=== PATIENT | male | born 1960 | race Caucasian/White ===

== ENCOUNTER 2018-03-20 11:54 | Inpatient (IN) | payer BC ==
[~2018-03-20] VITALS: Ht 182.9 cm; Wt 75.5 kg
[~2018-03-20 11:54] MED LIST: Amlodipine Besy10 MG PO; Atenolol100 MG PO; EZET10 PO; VARE1 PO; ZESTRIL40 MG PO
[2018-03-20 12:23] LABS: BASOPHILS ABSOLUTE AUTO 0.04 K/mm3 (0.00-0.23); BASOPHILS PERCENT AUTO 0 % (0-2); EOSINOPHILS ABSOLUTE AUTO 0.08 K/mm3 (0.00-0.68); EOSINOPHILS PERCENT AUTO 1 % (0-6); Hematocrit 34.5 % (37.0-53.0); Hemoglobin 11.8 g/dL (13.5-17.5); IMMATURE GRAN ABSOLUTE AUTO 0.05 K/mm3 (0.00-0.10); IMMATURE GRAN PERCENT AUTO 0 % (0-1); LYMPHOCYTES ABSOLUTE AUTO 3.38 K/mm3 (0.84-5.20); LYMPHOCYTES PERCENT AUTO 27 % (21-46); MONOCYTES ABSOLUTE AUTO 0.87 K/mm3 (0.16-1.47); MONOCYTES PERCENT AUTO 7 % (4-13); Mean Corpuscular HGB 35.9 pg (26.0-34.0); Mean Corpuscular HGB Conc 34.2 g/dL (31.5-36.5); Mean Corpuscular Volume 105 fL (80-100); Mean Platelet Volume 9.5 fL (9.1-12.4); NEUTROPHILS ABSOLUTE AUTO 8.28 K/mm3 (1.96-9.15); NEUTROPHILS PERCENT AUTO 65 % (41-73); Platelet Count 202 K/mm3 (150-400); RDW Coefficient Variation 12.7 % (11.7-14.2); Red Blood Cell Count 3.29 M/mm3 (4.30-5.90)
[2018-03-20 12:35] LABS: Alanine Aminotransfer (ALT/SGP 24 U/L (12-78); Albumin/Globulin Ratio 1.2 (0.8-1.8); Alk Phos 55 U/L (50-136); Anion Gap 8 mmol/L (6-16); Aspartate Aminotrans (AST/SGOT 21 U/L (12-37); Bilirubin, Total 0.8 mg/dL (0.1-1.0); Blood Urea Nitrogen 46 mg/dL (8-24); Bun/Creatinine Ratio 50.4 (12.0-20.0); CO2, Blood 26 mmol/L (21-32); Calcium, Blood 9.1 mg/dL (8.5-10.1); Chloride, Blood 104 mmol/L (98-108); Creatinine, Blood 0.91 mg/dL (0.60-1.20); Globulin, Blood 3.2 g/dL (2.2-4.0); Glomerular Filtration Rate >60 (60-); Glucose, Blood 127 mg/dL (70-99); International Normalized Ratio 0.96; Potassium, Blood 4.5 mmol/L (3.5-5.5); Sodium, Blood 138 mmol/L (136-145); Total Protein, Blood 7.2 g/dL (6.4-8.2)
[2018-03-20] MEDS ORDERED: AMLO10 PO (15:23)
[2018-03-20] MEDS ORDERED: ATEN100 PO (15:24)
[2018-03-20] MEDS ORDERED: LISI20 PO (15:24)
[2018-03-21 04:14] LABS: Hemoglobin 10.2 g/dL (13.5-17.5); Mean Corpuscular Volume 106 fL (80-100); Mean Platelet Volume 9.7 fL (9.1-12.4); Platelet Count 162 K/mm3 (150-400); RDW Coefficient Variation 12.7 % (11.7-14.2); RDW Standard Deviation 49.1 fL (35.1-46.3); Red Blood Cell Count 2.83 M/mm3 (4.30-5.90)
[2018-03-22] MEDS ORDERED: OMEPRAZOLE MAGN20 MG PO (07:19)
== END 2018-03-22 08:08 | disposition home or self-care (01) | DRG 379 ==
LOC: ER 11:54 → MEDS 11:55 → PCU 11:55
PROVIDERS: Emergency Medicine; Family Medicine; Internal Medicine Gastroenterology
PROC: 0DB68ZX Excision of Stomach, Via Natural or Artificial Opening Endoscopic, Diagnostic (ICD-10-PCS; 2018-03-21)
PROC: 0DB98ZX Excision of Duodenum, Via Natural or Artificial Opening Endoscopic, Diagnostic (ICD-10-PCS; principal; 2018-03-21 14:45)
DX: K25.4 Chronic or unspecified gastric ulcer with hemorrhage (principal); K26.9 Duodenal ulcer, unspecified as acute or chronic, without hemorrhage or perforation; F17.210 Nicotine dependence, cigarettes, uncomplicated; K92.0 Hematemesis; T39.315A Adverse effect of propionic acid derivatives, initial encounter; I10 Essential (primary) hypertension; G89.29 Other chronic pain; F10.20 Alcohol dependence, uncomplicated; K92.1 Melena
CPT/HCPCS: 36415; 80053; 83690; 85025; 85027; 85610; 85730; 86850; 86900; 86901; 88305; 88342; 93005; 93010; 96365; 96366; 99285; C9113; J2250; J7030; J7120

== ENCOUNTER 2020-09-19 09:08 | Day surgery (SDC) | payer BC ==
[~2020-09-19] VITALS: Ht 182.9 cm; Wt 79.0 kg
[~2020-09-19 09:08] MED LIST changes: +ALBU8HFA2 INH; +AMLO10 PO; +ATEN100 PO; +INCRUSE ELLIPTA INH; +LISI20 PO; +LISINOPRIL-HCT1 EAC1 PO; +OMEPRAZOLE MAGN20 MG PO; +Pravachol40 MG PO
== END 2020-09-19 09:15 | disposition home or self-care (01) ==
LOC: ORSCSDS 09:08
PROVIDERS: Surgery
PROC: 0DBN8ZX Excision of Sigmoid Colon, Via Natural or Artificial Opening Endoscopic, Diagnostic (ICD-10-PCS; principal; 2020-09-19 08:30)
PROC: 0DBK8ZX Excision of Ascending Colon, Via Natural or Artificial Opening Endoscopic, Diagnostic (ICD-10-PCS; principal; 2020-09-19 08:30)
DX: Z12.11 Encounter for screening for malignant neoplasm of colon (principal); Z86.010 Personal history of colon polyps; D12.2 Benign neoplasm of ascending colon; D12.5 Benign neoplasm of sigmoid colon; K57.30 Diverticulosis of large intestine without perforation or abscess without bleeding; L91.8 Other hypertrophic disorders of the skin; I10 Essential (primary) hypertension; E78.5 Hyperlipidemia, unspecified; J44.9 Chronic obstructive pulmonary disease, unspecified; G47.30 Sleep apnea, unspecified; F17.210 Nicotine dependence, cigarettes, uncomplicated; Z79.899 Other long term (current) drug therapy
CPT/HCPCS: 88305; J0330; J0461; J2405; J2704; J7120

== ENCOUNTER 2022-07-20 11:53 | Day surgery (SDC) | payer BC ==
[~2022-07-20] VITALS: Ht 180.3 cm; Wt 76.3 kg
--- NOTE | 2022-07-20 13:44 | NUR ---
07/20/22 1344 Patricio Posadas N 1340 2 MG IV VERSED, 50 MCG FENTANYL IV ADMINISTERED BY RN PER DR GOODE. VSS.
== END 2022-07-20 14:22 | disposition home or self-care (01) ==
LOC: ORSCSDS 11:53
PROVIDERS: Anesthesiology
PROC: 3E0R33Z Introduction of Anti-inflammatory into Spinal Canal, Percutaneous Approach (ICD-10-PCS; principal; 2022-07-20 13:45)
DX: M54.12 Radiculopathy, cervical region (principal); E78.00 Pure hypercholesterolemia, unspecified; I10 Essential (primary) hypertension; F17.210 Nicotine dependence, cigarettes, uncomplicated
CPT/HCPCS: J1040; J2250; J3010; J3301; J7040

== ENCOUNTER 2022-09-10 12:43 | Day surgery (SDC) | payer BC ==
[~2022-09-10] VITALS: Ht 182.9 cm; Wt 76.6 kg
== END 2022-09-10 14:46 | disposition home or self-care (01) ==
LOC: ORSCSDS 12:43
PROVIDERS: Anesthesiology
PROC: 3E0R33Z Introduction of Anti-inflammatory into Spinal Canal, Percutaneous Approach (ICD-10-PCS; principal; 2022-09-10 14:30)
DX: M54.12 Radiculopathy, cervical region (principal); M96.1 Postlaminectomy syndrome, not elsewhere classified; I10 Essential (primary) hypertension; J45.909 Unspecified asthma, uncomplicated; E78.00 Pure hypercholesterolemia, unspecified; K21.9 Gastro-esophageal reflux disease without esophagitis; F17.210 Nicotine dependence, cigarettes, uncomplicated; Z79.899 Other long term (current) drug therapy
CPT/HCPCS: J1040; J2250; J3010

== ENCOUNTER 2023-01-13 20:25 | Inpatient (IN) | payer BC ==
[~2023-01-13] VITALS: Ht 182.9 cm; Wt 73.2 kg
[~2023-01-13 20:25] MED LIST changes: +ALBU2.5V5 NEB; -ALBU8HFA2 INH; +ALBU90OI INH; -AMLO10 PO; +AMLO5 PO; +AZIT250 PO; +DIFLUCAN100 MG PO; +FLUTICASONE-SA1 EAC9 INH; +MAGNESIUM OXID500 MG PO; +OMEP20ER PO; -OMEPRAZOLE MAGN20 MG PO; +POTCHL20ER PO; +Pravastatin Sod80 MG PO; +VISBIOME 112.51 EACH PO
[2023-01-13 20:50] LABS: Calcium, Ionized (POC) 1.05 mmol/L (1.10-1.46); Chloride (POC) 111 mmol/L (98-108); Creatinine (POC) 0.8 mg/dL (0.8-1.3); Glucose (ISTAT POC) 114 mg/dL (70-99); Hemoglobin (POC) 9.2 g/dL (13.5-17.5); Potassium (POC) 5.9 mmol/L (3.5-5.5); Sodium (POC) 133 mmol/L (135-148); Total CO2 (POC) 14 mmol/L (21-32)
[2023-01-13 21:24] LABS: BASOPHILS ABSOLUTE AUTO 0.04 K/mm3 (0.00-0.23); BASOPHILS PERCENT AUTO 0 % (0-2); EOSINOPHILS ABSOLUTE AUTO 0.03 K/mm3 (0.00-0.68); EOSINOPHILS PERCENT AUTO 0 % (0-6); Hematocrit 29.7 % (37.0-53.0); Hemoglobin 9.4 g/dL (13.5-17.5); IMMATURE GRAN ABSOLUTE AUTO 0.32 K/mm3 (0.00-0.10); IMMATURE GRAN PERCENT AUTO 3 % (0-1); LYMPHOCYTES ABSOLUTE AUTO 6.66 K/mm3 (0.84-5.20); LYMPHOCYTES PERCENT AUTO 59 % (21-46); MONOCYTES ABSOLUTE AUTO 0.72 K/mm3 (0.16-1.47); MONOCYTES PERCENT AUTO 6 % (4-13); Mean Corpuscular HGB 34.8 pg (26.0-34.0); Mean Corpuscular HGB Conc 31.6 g/dL (31.5-36.5); Mean Platelet Volume 12.2 fL (9.1-12.4); NEUTROPHILS ABSOLUTE AUTO 3.61 K/mm3 (1.96-9.15); NEUTROPHILS PERCENT AUTO 32 % (41-73); NRBC ABSOLUTE 0.05 K/mm3 (0.00-0.02); NRBC Auto 0.4 /100 WBC (0.0-0.2); Platelet Count 190 K/mm3 (150-400); RDW Coefficient Variation 15.4 % (11.7-14.2); RDW Standard Deviation 62.2 fL (35.1-46.3); White Blood Cell Count 11.38 K/mm3 (4.00-11.30)
[2023-01-13 21:38] LABS: Ethanol (Alcohol), Blood, Med <3 mg/dL; Magnesium, Blood 1.6 mg/dL (1.6-2.4)
[2023-01-13 21:39] LABS: Alanine Aminotransfer (ALT/SGP 100 U/L (12-78); Albumin, Blood 2.1 g/dL (3.4-5.0); Albumin/Globulin Ratio 0.6 (0.8-1.8); Alk Phos 440 U/L (50-136); Anion Gap 9 mmol/L (6-16); Aspartate Aminotrans (AST/SGOT 174 U/L (12-37); Bilirubin, Total 0.9 mg/dL (0.1-1.0); Blood Urea Nitrogen 22 mg/dL (8-24); Bun/Creatinine Ratio 24.4 (12.0-20.0); CO2, Blood 16 mmol/L (21-32); Calcium, Blood 8.2 mg/dL (8.5-10.1); Chloride, Blood 112 mmol/L (98-108); Globulin, Blood 3.7 g/dL (2.2-4.0); Glomerular Filtration Rate 97 (60-); Glucose, Blood 130 mg/dL (70-99); Potassium, Blood 5.7 mmol/L (3.5-5.5); Sodium, Blood 137 mmol/L (136-145); Total Protein, Blood 5.8 g/dL (6.4-8.2)
[2023-01-13 21:44] LABS: Mean Corpuscular Volume 110 fL (80-100)
[2023-01-13 21:46] LABS: PCO2 Arterial 34.3 mmHg (35-45); PO2 Arterial 291 mmHg (80-100); pH Blood Arterial 7.21 (7.35-7.45)
[2023-01-14 02:15] LABS: Source, Urine Foley catheter
[2023-01-14 02:32] LABS: Bilirubin, Urine Neg (Neg); Blood, Urine 4+ (Neg); Glucose Qualitative, Urine 2+ (Neg); Ketones, Urine Neg (Neg); Leukocyte Esterase, Urine Neg (Neg); Nitrite, Urine Neg (Neg); Protein, Urine 4+ (Neg); Urobilinogen, Urine 1+ (Normal)
[2023-01-14 02:37] LABS: Appearance, Urine Hazy (Clear); Color, Urine Yellow (P-Yellow)
[2023-01-14 02:39] LABS: Bacteria Few /hpf; Squamous Epithelial Cells Few /hpf (Few); White Blood Cells, Urine 0-2 /hpf (0-5)
[2023-01-14 02:40] LABS: Hyaline Casts 0-2 /lpf (0-2)
[2023-01-14 02:45] LABS: U Cannabinoids Screen DETECTED
[2023-01-14 02:46] LABS: U Amphetamine Screen Not Detected; U Barbituate Screen Not Detected; U Benzodiazapine Screen Not Detected; U Buprenorphine Screen Not Detected; U Cocaine Screen Not Detected; U Methadone Screen Not Detected; U Methamphetamine Screen DETECTED; U Opiates Screen Not Detected; U Oxycodone Screen Not Detected; U Phencyclidine Screen Not Detected; U Propoxyphene Screen Not Detected
[2023-01-14 03:11] LABS: Creatine Kinase MB 28.7 ng/mL (0.0-3.6); Creatine Kinase MB Index 3.9 (0.0-4.0)
[2023-01-14 05:07] LABS: BASOPHILS ABSOLUTE AUTO 0.02 K/mm3 (0.00-0.23); BASOPHILS PERCENT AUTO 0 % (0-2); EOSINOPHILS PERCENT AUTO 0 % (0-6); Hematocrit 26.4 % (37.0-53.0); Hemoglobin 8.8 g/dL (13.5-17.5); IMMATURE GRAN ABSOLUTE AUTO 0.09 K/mm3 (0.00-0.10); IMMATURE GRAN PERCENT AUTO 1 % (0-1); LYMPHOCYTES ABSOLUTE AUTO 1.35 K/mm3 (0.84-5.20); LYMPHOCYTES PERCENT AUTO 16 % (21-46); MONOCYTES ABSOLUTE AUTO 0.58 K/mm3 (0.16-1.47); MONOCYTES PERCENT AUTO 7 % (4-13); Mean Corpuscular HGB 34.1 pg (26.0-34.0); Mean Corpuscular HGB Conc 33.3 g/dL (31.5-36.5); Mean Platelet Volume 11.5 fL (9.1-12.4); NEUTROPHILS ABSOLUTE AUTO 6.23 K/mm3 (1.96-9.15); NEUTROPHILS PERCENT AUTO 75 % (41-73); Platelet Count 202 K/mm3 (150-400); RDW Coefficient Variation 15.2 % (11.7-14.2); RDW Standard Deviation 56.3 fL (35.1-46.3); Red Blood Cell Count 2.58 M/mm3 (4.30-5.90); White Blood Cell Count 8.27 K/mm3 (4.00-11.30)
[2023-01-14 05:07] LABS: PCO2 Arterial 32.2 mmHg (35-45); pH Blood Arterial 7.43 (7.35-7.45)
[2023-01-14 05:47] LABS: Albumin/Globulin Ratio 0.6 (0.8-1.8); Bilirubin, Total 1.6 mg/dL (0.1-1.0); Bun/Creatinine Ratio 24.8 (12.0-20.0); Calcium, Blood 7.8 mg/dL (8.5-10.1); Creatinine, Blood 0.85 mg/dL (0.60-1.20); Globulin, Blood 3.3 g/dL (2.2-4.0); Potassium, Blood 4.4 mmol/L (3.5-5.5); Total Protein, Blood 5.3 g/dL (6.4-8.2)
[2023-01-14 06:33] LABS: Mean Corpuscular Volume 102 fL (80-100)
[2023-01-14 09:13] LABS: Source, Urine Foley catheter
[2023-01-14 09:17] LABS: Appearance, Urine Clear (Clear); Bilirubin, Urine Neg (Neg); Blood, Urine 5+ (Neg); Color, Urine Yellow (P-Yellow); Glucose Qualitative, Urine 3+ (Neg); Ketones, Urine Neg (Neg); Leukocyte Esterase, Urine 2+ (Neg); Nitrite, Urine Neg (Neg); Protein, Urine 2+ (Neg); Specific Gravity, Urine 1.015 (1.003-1.022); Urobilinogen, Urine 1+ (Normal)
[2023-01-14 09:44] LABS: U Amphetamine Screen Not Detected; U Barbituate Screen Not Detected; U Benzodiazapine Screen Not Detected; U Cannabinoids Screen DETECTED; U Cocaine Screen Not Detected; U Methadone Screen Not Detected; U Methamphetamine Screen Not Detected; U Opiates Screen Not Detected; U Phencyclidine Screen Not Detected
[2023-01-14 09:45] LABS: U Buprenorphine Screen Not Detected; U Oxycodone Screen Not Detected; U Propoxyphene Screen Not Detected
[2023-01-14 09:49] LABS: White Blood Cells, Urine 0-2 /hpf (0-5)
[2023-01-14 09:50] LABS: Bacteria Few /hpf; Hyaline Casts 0-2 /lpf (0-2); Squamous Epithelial Cells Few /hpf (Few)
[2023-01-14 12:01] LABS: Creatine Kinase MB 23.2 ng/mL (0.0-3.6); Creatine Kinase MB Index 3.5 (0.0-4.0)
--- NOTE | 2023-01-14 18:22 | NUR ---
END OF SHIFT SUMMARY: NEURO: SEDATED WITH PROPOFOL, TITRATED FOR EFFECT. C/O PAIN, FENTANYL GIVEN WITH GOOD RELIEF. EEG CANCELLED DUE TO PT FOLLOWING ALL COMMANDS. MOVES ALL EXTREMETIES. CARDIAC: SR TO SB, RATE LOW 45. BP MAINTAINED WITH LEVO, ABLE TO TITRATE DOWN THROUGHOUT THE DAY. OK FOR SBP <90 IF MAP >[address] DUNHAM. ECHO COMPLETED. AMIO INFUSION D/C'D DUE TO BRADYCARDIA. RESP: INTUBATED WITH 8.0 ETT/26@TEETH. VENT SETTINGS 16/500/8/45% TO MAINTAIN SPO2 > 92%. PLAN FOR SBT IN AM PER DR. DUNHAM. LUNGS CTA, DIMISHED BASES. PAIN IN RIBS/STERNUM LIKELY RELATED TO CPR, FX RIBS. GI: OGT TO LIS. BS HYPOACTIVE : NATHAN TO GRAVITY, 700ML CLEAR YELLOW URINE OUT. SKIN: SCATTERED ABRASIONS AND BRUISES. RIGHT SHOULDER AND LEFT TIBIAL I/O SITES WITH NO DRAINAIGE OR BLEEDING. IV: QUAD LUMEN CATH TO RIGHT IJ, ALL PORTS INFUSING. PIV TO LEFT SHOULDER, FLUSHES WELL, SL. HCO3 DRIP AT 100ML/HR 2ND OF 2 LITERS HANGING. , BROTHER, SISTER IN LAW AND NIECE ALL TO BEDISIDE TODAY. UPDATED ON POC, ALL QUESTIONS ANSWERED.
--- NOTE | 2023-01-14 19:00 | NUR ---
ASSUMED CARE ASSUMED CARE OF PATIENT. REMAINS INTUBATED- AC/VC 16, TV 500, PEEP 8, FIO2 45%. SEDATED WITH PROPOFOL AT 35MCG/KG/MIN. OPENS EYES TO VERBAL STIMULI. FOLLOWS SIMPLE COMMANDS. NODS HEAD YES/NO APPROPRIATELY. MOVES ALL EXTREMITIES WEAKLY. MONITOR SHOWS SB-SR, RATE 40s-60s. LEVOPHED AT 4MCG/MIN TO MAINTAIN MAP >65. OG TO LIS WITH SMALL AMOUNT GREEN DRAINAGE. NATHAN PATENT AND DRAINING TO GRAVITY. BICARB GTT INFUSING PER ORDER. RIJ CENTRAL LINE NOTED. SEE SHIFT ASSESSMENT FOR FULL ASSESSMENT.
[2023-01-15 04:18] LABS: BASOPHILS ABSOLUTE AUTO 0.01 K/mm3 (0.00-0.23); BASOPHILS PERCENT AUTO 0 % (0-2); EOSINOPHILS ABSOLUTE AUTO 0.03 K/mm3 (0.00-0.68); EOSINOPHILS PERCENT AUTO 1 % (0-6); Hematocrit 21.2 % (37.0-53.0); Hemoglobin 7.4 g/dL (13.5-17.5); IMMATURE GRAN ABSOLUTE AUTO 0.07 K/mm3 (0.00-0.10); IMMATURE GRAN PERCENT AUTO 2 % (0-1); LYMPHOCYTES ABSOLUTE AUTO 1.46 K/mm3 (0.84-5.20); LYMPHOCYTES PERCENT AUTO 32 % (21-46); MONOCYTES ABSOLUTE AUTO 0.22 K/mm3 (0.16-1.47); MONOCYTES PERCENT AUTO 5 % (4-13); Mean Corpuscular HGB 34.9 pg (26.0-34.0); Mean Corpuscular HGB Conc 34.9 g/dL (31.5-36.5); Mean Corpuscular Volume 100 fL (80-100); Mean Platelet Volume 11.4 fL (9.1-12.4); NEUTROPHILS ABSOLUTE AUTO 2.76 K/mm3 (1.96-9.15); NEUTROPHILS PERCENT AUTO 61 % (41-73); Platelet Count 123 K/mm3 (150-400); RDW Coefficient Variation 14.9 % (11.7-14.2); RDW Standard Deviation 53.9 fL (35.1-46.3); Red Blood Cell Count 2.12 M/mm3 (4.30-5.90); White Blood Cell Count 4.55 K/mm3 (4.00-11.30)
[2023-01-15 04:30] LABS: International Normalized Ratio 1.31; Prothrombin Time Results 13.5 Sec (9.7-11.5)
[2023-01-15 05:02] LABS: Albumin, Blood 3.1 g/dL (3.4-5.0); Anion Gap 9 mmol/L (6-16); Blood Urea Nitrogen 11 mg/dL (8-24); Bun/Creatinine Ratio 17.7 (12.0-20.0); CO2, Blood 25 mmol/L (21-32); Calcium, Blood 7.7 mg/dL (8.5-10.1); Chloride, Blood 106 mmol/L (98-108); Creatinine, Blood 0.62 mg/dL (0.60-1.20); Glomerular Filtration Rate 109 (60-); Glucose, Blood 110 mg/dL (70-99); Phosphorus, Blood 2.2 mg/dL (2.5-4.9); Potassium, Blood 2.8 mmol/L (3.5-5.5); Sodium, Blood 140 mmol/L (136-145)
[2023-01-15 05:27] LABS: Magnesium, Blood 1.4 mg/dL (1.6-2.4)
--- NOTE | 2023-01-15 06:08 | NUR ---
SHIFT SUMMARY NO ACUTE CHANGES. SEDATED WITH PROPOFOL- NOW AT 25MCG/KG/MIN. OPENS EYES TO VERBAL STIMULI. FOLLOWS SIMPLE COMMANDS. NODS HEAD YES/NO APPROPRIATELY. MEDICATED WITH ATIVAN 2MG IV X1 DOSE FOR SEDATION ADJUNCT AND FENTANYL 50MCG IV X 2 DOSES FOR COMFORT. MONITOR SHOWS SB-SR, RATE 40s-60s. LEVOPHED BETWEEN 1-4MCG/MIN TO MAINTAIN MAP >65. NOW AT 1MCG/MIN. OG TO LIS WITH GREEN DRAINAGE. NATHAN PATENT AND DRAINING TO GRAVITY. SEE RT DOCUMENTATION FOR SBT DOCUMENTATION. REMAINS IN CONTACT ISOLATION FOR C.DIFF. NO STOOL DURING NOC.
--- NOTE | 2023-01-15 08:10 | NUR ---
INITIAL ASSESSMENT PATIENT INTUBATED AND SEDATED. PATIENT RESPONDS TO NOXIOUS STIMULI WITH FURROWING OF BROW AND MOVING FEET. NO MOVEMENTS NOTED TO BILAT HANDS OR ARMS. PATIENT AFEBRILE. PATIENT ON ACPC 14, PI 14, PEEP 8 AND 35% FIO2. LUNGS CLEAR IN UPPER LOBES AND DIMINISHED IN LOWER LOBES. SMALL AMOUNT OF THICK, PALE YELLOW SPUTUM SUCTIONED FROM ETT. PATIENT SB TO SR, HR 50S TO 60S. SBP 90S TO LOW 100S. OG TO LIS; BILE DRAINING. ABD MILDLY DISTENDED, SOFT, HYPOACTIVE BOWEL SOUNDS NOTED. NATHAN DRAINING RAÚL COLORED URINE. SCATTERED BRUISES AND SCABS NOTED. REDDENED COCCYX AND ELBOWS. LEVOPHED ON SB. PROPOFOL AT 25 MCG/ KG/ MINUTE. NS TKO X 2. BED LOW, CALL LIGHT IN REACH. WILL CONTINUE TO MONITOR PATIENT FREQUENTLY THROUGHOUT SHIFT.
--- NOTE | 2023-01-15 10:28 | NUR ---
PATIENT HR DROPPED TO 33. DR. DUNHAM INFORMED. 1 MG ATROPINE GIVEN AT 1014. DOPAMINE DRIP STARTED. LEVOPHED DISCONTINUED. WILL CONTINUE TO MONITOR.
--- NOTE | 2023-01-15 13:00 | NUR ---
PATIENT AFEBRILE. HR IN THE 60S. SBP 70S TO LOW 100S. DOPAMINE INFUSING. VENT SETTINGS REMAIN UNCHANGED. TF STARTED. DR. DUNHAM STATED FOR NO WEAN OR SEDATION VACATION TODAY. NO OTHER ACUTE CHANGES TO NOTE ON AT THIS TIME. WILL CONTINUE TO MONITOR.
[2023-01-15 15:45] LABS: Hematocrit 24.8 % (37.0-53.0); Hemoglobin 8.6 g/dL (13.5-17.5)
--- NOTE | 2023-01-15 16:35 | NUR ---
PATIENT AFEBRILE. HR IN THE 70S. SBP IN THE 90S. DOPAMINE INFUSING AT 1.5 MCG/ KG/ MINUTE. FIO2 NOW AT 50%. NO OTHER ACUTE CHANGES TO NOTE ON AT THIS TIME. WILL CONTINUE TO MONITOR.
--- NOTE | 2023-01-15 18:44 | NUR ---
SHIFT SUMMARY PATIENT HAS REMAINED INTUBATED AND SEDATED. PATIENT REMAINS RESPONDING TO PAINFUL STIMULI. NO MOVEMENT TO ARMS OR HANDS NOTED. PATIENT HAS REMAINED AFEBRILE. PATIENT GIVEN PRN FENTANYL OT THIS SHIFT FOR SIGNS OF PAIN. PATIENT REMAINED ON PC 14, PI 14, PEEP 8, BUT FIO2 INCREASED FROM 35% TO 50% TO KEEP SATS 90% AND GREATER. SMALL AMOUNT OF SECRETIONS NOTED FROM ETT. PATIENT SB TO SR, HR 33 TO 100. ATROPINE GIVEN AND DOPAMINE STARTED WHEN PATIENT BECAME BRADYCARDIC; NO EPISODE SINCE. DOPAMINE DRIP AT 1.5 MCG/ KG/ MINUTE AT THIS TIME TO KEEP MAPS 65 AND GREATER. TF STARTED THIS SHIFT AT 10; CAN BE INCREASED AT 2100. NATHAN DRAINED 650 MLS OF RAÚL COLORED URINE. NO CHANGES TO SKIN NOTED. PATIENT REPOSITIONED Q2H. PROPOFOL REMAINS AT 25 MCG/ KG/ MINUTE. PATIENT RECEIVED REPLACEMENTS FOR MAG, PHOS AND POTASSIUM THIS SHIFT. HAS BEEN IN SEVERAL TIMES TODAY TO CHECK ON PATIENT. PATIENT APPEARS WITHOUT PAIN OR DISTRESS AT THIS TIME. BED LOW, CALL LIGHT IN REACH. REPORT WILL BE GIVEN TO ASSUMING PYTHON DEVELOPER NURSE SHORTLY.
[2023-01-16 03:22] LABS: Hematocrit 25.9 % (37.0-53.0); Hemoglobin 8.9 g/dL (13.5-17.5); Mean Corpuscular HGB 34.6 pg (26.0-34.0); Mean Corpuscular HGB Conc 34.4 g/dL (31.5-36.5); Mean Corpuscular Volume 101 fL (80-100); Mean Platelet Volume 11.6 fL (9.1-12.4); NRBC ABSOLUTE 0.06 K/mm3 (0.00-0.02); NRBC Auto 1.3 /100 WBC (0.0-0.2); Platelet Count 145 K/mm3 (150-400); RDW Coefficient Variation 15.3 % (11.7-14.2); RDW Standard Deviation 56.2 fL (35.1-46.3); Red Blood Cell Count 2.57 M/mm3 (4.30-5.90); White Blood Cell Count 4.61 K/mm3 (4.00-11.30)
[2023-01-16 03:40] LABS: BAND PERCENT MAN 13 % (0-8); BASOPHILS PERCENT MAN 0 % (0-2); EOSINOPHILS ABSOLUTE MAN 0.04 K/mm3 (0.00-0.68); EOSINOPHILS PERCENT MAN 1 % (0-6); LYMPHOCYTES ABSOLUTE MAN 1.01 K/mm3 (0.84-5.20); LYMPHOCYTES PERCENT MAN 22 % (21-46); METAMYELOCYTE ABSOLUTE MAN 0.04 K/mm3 (0.00-0.00); METAMYELOCYTE PERCENT MAN 1 % (0-0); MONOCYTES ABSOLUTE MAN 0.32 K/mm3 (0.16-1.47); MONOCYTES PERCENT MAN 7 % (4-13); NEUTROPHILS ABSOLUTE MAN 3.18 K/mm3 (1.96-9.15); SEG NEUTROPHILS PERCENT MAN 56 % (41-73); TOTAL CELLS COUNTED 100
[2023-01-16 03:42] LABS: Albumin, Blood 2.4 g/dL (3.4-5.0); Anion Gap 5 mmol/L (6-16); Blood Urea Nitrogen 9 mg/dL (8-24); Bun/Creatinine Ratio 14.9 (12.0-20.0); CO2, Blood 26 mmol/L (21-32); Calcium, Blood 7.6 mg/dL (8.5-10.1); Chloride, Blood 107 mmol/L (98-108); Glomerular Filtration Rate 110 (60-); Glucose, Blood 117 mg/dL (70-99); Magnesium, Blood 1.7 mg/dL (1.6-2.4); Phosphorus, Blood 3.3 mg/dL (2.5-4.9); Potassium, Blood 3.5 mmol/L (3.5-5.5); Sodium, Blood 138 mmol/L (136-145)
--- NOTE | 2023-01-16 05:44 | NUR ---
END OF SHIFT SUMMARY PT SEDATED AND INTUBATED. PT OPENS EYES WHEN BEING MOVED OR WITH LOUD NOISES. QUICKLY CLOSES EYES AFTER TRACKING PERSON IN ROOM. DOES NOT FOLLOW COMMANDS, HOWEVER DOES MOVE ARMS AND LEGS RANDOMLY. RESP- VENT AC/PC 12/07 PEEP/50% WITH SPO2 >93%. THICK LIGHT YEN SPUTUM SUCTIONED MULTIPLE TIMES THROUGHOUT THIS SHIFT. CARDIAC- MULTIPLE IRREGULAR HEART RATE ALARMS WITH PVC'S. SBP RANGING FROM 80'S-100'S WITH DOPAMINE TITRATED HIGHER THROUGHOUT THE NIGHT STARTING WITH 1.5 AND NOW AT 2.5. GI, - NO BM THIS SHIFT. STOOL SAMPLE STILL IN NEED OF COLLECTION TO RULE OUT C-DIFF. NATHAN DRAINING TO GRAVITY WITH DARK YELLOW URINE PRESENT. INTEG- PT HAS MULTIPLE SCABS SCATTERED THROUGHOUT. RED COCCYX AND ELBOWS. DRESSING ON COCCYX AREA C/D/I. BRUISING ALSO SCATTERED THROUGHOUT. DOPAMINE AT 2.5 MCG TKO AT 10 MLS/HR TF AT 30 MLS/HR WITH FLUSH EVERY 4 HOURS. GOAL RATE OF 50 MLS/HR. WILL CONTINUE TO MONITOR UNTIL REPORT GIVEN TO DAY RN.
--- NOTE | 2023-01-16 07:54 | NUR ---
ASSUMED CARE BEDSIDE REPORT FROM DEIDRA RN AT 0700. PT INTUBATED AND SEDATED. DECREASED PROPOFOL TO 15 MCG/KG/MIN. PT OPENS EYES SPONT, FOLLOWS COMMANDS, NODS HEAD TO YES/NO QUESTIONS, MOVES ALL EXT WEAKLY. VENT SETTINGS CHANGED TO SPONT 14/5/50%, RATE MID 20'S, TV 450-500ML. LUNGS DIM IN BASES, SMALL THICK YELLOW SECRETIONS FROM ETT. DOPAMINE GTT INFUSING. SR, RATE 90'S. BP STABLE. PT P/W/D. ABD DISTENDED, SOFT, NON TENDER. HYPOACTIVE BT. TUBE FEEDS INCREASED TO 50 ML/HR c 150 ML FLUSH q4 HR. NATHAN PATENT, DRAINING CLEAR YELLOW URINE TO GRAVITY. CVC TO RIJ, DRESSING C/D/I. WILL CONTINUE TO MONITOR.
--- NOTE | 2023-01-16 11:00 | NUR ---
SEDATION VACATION PROPOFOL DECREASED TO 15 MCG/KG/MIN, VENT CHANGED TO SPONT INITIALLY PS 14, TITRATED TO 10/5/40%. TIDAL VOLUMES 350-400ML. AFTER APPROX 2 HOURS, PT BECAME TACHPENIC, LOW TV. CHANGED TO AC/VC 14/400/8/50%.
--- NOTE | 2023-01-16 17:51 | NUR ---
SHIFT SUMMARY PT REMAINS ON AC/VC 14/400/8/50%. OCCASIONAL TACHYPNEA, RATE 25-35. MAINTAINING O2 SATS. PROPOFOL INCREASED TO 40 MCG/KG/MIN FOR VENT COMPLIANCE. INCREASE IN SECRETIONS FROM ETT, THIN, CLEAR. LUNGS DIM IN BASES. DOPAMINE REMAINS ON FOR MAP>65. HR 110'S AT THIS TIME, DECREASED FROM 130'S p 1L NS BOLUS. TUBE FEEDS INCREASED TO 50 ML/HR, TOLERATING WELL. NATHAN PATENT, DRAINING TO GRAVITY, 800 ML OUT THIS SHIFT. CVC TO RIJ, DRESSING C/D/I. WILL CONTINUE TO MONITOR UNTIL REPORT TO ONCOMING NURSE.
--- NOTE | 2023-01-16 19:00 | NUR ---
ASSUMED CARE OF PT AT 1900 PT SEDATED AND INTUBATED. PROP AT 40 MCG/KG/MIN. DOPAMINE AT 5 MCG/KG/MIN. VITALS STABLE AND WNL AT THIS TIME. NATHAN DRAINING TO GRAVITY, DARK YELLOW TO RAÚL URINE PRESENT. NO BM DURING DAYSHIFT REPORTED. SEE FULL ASSESSMENT FOR FURTHER INFORMATION.
--- NOTE | 2023-01-16 22:58 | NUR ---
PT CALLED FOR UPDATE ON PT. STATES SHE WILL BE IN TO SEE PT IN THE MORNING AT 9-10AM. UPDATE GIVEN.
[2023-01-17 04:25] LABS: Hematocrit 23.2 % (37.0-53.0); Hemoglobin 7.7 g/dL (13.5-17.5); Mean Corpuscular HGB 34.4 pg (26.0-34.0); Mean Corpuscular HGB Conc 33.2 g/dL (31.5-36.5); Mean Corpuscular Volume 104 fL (80-100); Mean Platelet Volume 11.4 fL (9.1-12.4); NRBC ABSOLUTE 0.09 K/mm3 (0.00-0.02); NRBC Auto 1.1 /100 WBC (0.0-0.2); Platelet Count 159 K/mm3 (150-400); RDW Coefficient Variation 15.9 % (11.7-14.2); RDW Standard Deviation 58.7 fL (35.1-46.3); Red Blood Cell Count 2.24 M/mm3 (4.30-5.90); White Blood Cell Count 8.22 K/mm3 (4.00-11.30)
[2023-01-17 04:42] LABS: Albumin, Blood 2.6 g/dL (3.4-5.0); Anion Gap 4 mmol/L (6-16); Blood Urea Nitrogen 16 mg/dL (8-24); Bun/Creatinine Ratio 23.4 (12.0-20.0); CO2, Blood 24 mmol/L (21-32); Calcium, Blood 7.5 mg/dL (8.5-10.1); Chloride, Blood 110 mmol/L (98-108); Creatinine, Blood 0.68 mg/dL (0.60-1.20); Glomerular Filtration Rate 106 (60-); Glucose, Blood 169 mg/dL (70-99); Phosphorus, Blood 2.1 mg/dL (2.5-4.9); Potassium, Blood 3.7 mmol/L (3.5-5.5); Sodium, Blood 138 mmol/L (136-145)
[2023-01-17 05:01] LABS: BAND PERCENT MAN 10 % (0-8); BASOPHILS PERCENT MAN 0 % (0-2); EOSINOPHILS ABSOLUTE MAN 0.08 K/mm3 (0.00-0.68); EOSINOPHILS PERCENT MAN 1 % (0-6); LYMPHOCYTES ABSOLUTE MAN 1.89 K/mm3 (0.84-5.20); LYMPHOCYTES PERCENT MAN 23 % (21-46); METAMYELOCYTE ABSOLUTE MAN 0.16 K/mm3 (0.00-0.00); METAMYELOCYTE PERCENT MAN 2 % (0-0); MONOCYTES PERCENT MAN 11 % (4-13); MYELOCYTE ABSOLUTE MAN 0.24 K/mm3 (0.00-0.00); MYELOCYTE PERCENT MAN 3 % (0-0); NEUTROPHILS ABSOLUTE MAN 4.93 K/mm3 (1.96-9.15); SEG NEUTROPHILS PERCENT MAN 50 % (41-73); TOTAL CELLS COUNTED 100
--- NOTE | 2023-01-17 05:55 | NUR ---
END OF SHIFT SUMMARY PT IS SEDATED AND INTUBATED. SEDATION TITRATED DOWN TO 30 FROM 40 THIS SHIFT D/T NO RESPONSE TO VERBAL STIMULI. WOULD ONLY RESPOND TO PAINFUL STIMULI. PT IS NOW FOLLOWING SOME COMMANDS. RESP- VENT AC/VC 14/400/8/50%. SECRETIONS HAVE INCREASED SIGNIFICANTLY SINCE YESTERDAY MORNING. SPUTUM SENT FOR CULTURE AT 2330 01/16/23. THICK YELLOW/YEN SPUTUM PRESENT. CARDIAC-PT WAS TRANSFERED TO LEVO AT START OF THIS SHIFT. DOPAMINE TITRATED DOWN AND DC'D SHORTLY AFTER. VASOPRESSIN ON STANDBY OF 0600 THIS AM, AND LEVO CURRENTLY AT 5 MCG/KG/MIN. GI, - NO BM THIS SHIFT. WILL CONFER WITH DAYSHIFT RN TO REQUEST STOOL SOFTENERS. 1450 URINE OUT THIS SHIFT. DARK YELLOW URINE PRESENT. BAG FOR NATHAN CHANGED D/T LEAK. TF SET TO GOAL RATE OF 50 MLS/HR WITH 150 MLS Q4 FLUSH. RESIDUALS CHECKED AT 2200 01/16/23 WITH LESS THAN 10 MLS PULLED. INTEG- FULL BED CHANGE AND HCG [place] DONE THIS SHIFT. MEPELEX ON COCCYX REMOVED. NO REDNESS PRESENT AT THIS TIME TO THAT AREA. NO OTHER CHANGES THIS SHIFT. LEVO @ 5 MCG VASO- STANDBY NS @ 100 MLS/HR PROPOFOL @ 30 MCG/KG/MIN.
--- NOTE | 2023-01-17 08:19 | NUR ---
SVT trial started at 12/07.
--- NOTE | 2023-01-17 09:31 | NUR ---
asked to turn off sedation for pt and svt trial. Pt displayed flail breathing and was placed back on ac/vc parameters. Sedation turned back on.
[2023-01-17 11:20] LABS: C DIFFICILE DNA POSITIVE (Negative)
--- NOTE | 2023-01-17 16:46 | NUR ---
Received report from ongoing nurse. Pt on ventilator ac/vc settings 400/40/14/8. Tachypnea. Multiple attempts at svt trial, pt displays flail chest and seasaw breathing. Will attempt tomorrow to see how patient does. AC/VC 400/35/14/8 - PT TOLERATING VENTILATOR. Pt had a BM 01/17/23 Sedation propofol 25mcg, levo at 4 mcg, 0.9 @ 100ml.hr.
--- NOTE | 2023-01-17 19:02 | NUR ---
ASSUMED CARE OF PT AT 1900 PT INTUBATED AND SEDATED. NO VISITORS HERE AT THIS TIME. PROP AT 25 MCG/KG/MIN NS 100 MLS/HR. VENT AC/VC 14/400/8/35% PIVOT AT GOAL OF 50 MLS/HR WITH 150 MLS FLUSH Q4. ALL VITALS STABLE AT THIS TIME. RESTRAINTS IN PLACE. FOLLY DRAINING TO GRAVITY. SEE FULL ASSESSMENT FOR FURTHER INFO.
[2023-01-18 04:11] LABS: Hematocrit 24.3 % (37.0-53.0); Hemoglobin 8.3 g/dL (13.5-17.5); Mean Corpuscular HGB 35.2 pg (26.0-34.0); Mean Corpuscular HGB Conc 34.2 g/dL (31.5-36.5); Mean Corpuscular Volume 103 fL (80-100); Mean Platelet Volume 11.9 fL (9.1-12.4); NRBC ABSOLUTE 0.07 K/mm3 (0.00-0.02); NRBC Auto 0.8 /100 WBC (0.0-0.2); Platelet Count 181 K/mm3 (150-400); RDW Coefficient Variation 16.1 % (11.7-14.2); RDW Standard Deviation 59.9 fL (35.1-46.3); Red Blood Cell Count 2.36 M/mm3 (4.30-5.90)
--- NOTE | 2023-01-18 04:11 | NUR ---
SBT STARTED WITH RT AT ROOM. WITHIN 5 MINUTES OF SEDATION ON STANDBY RT REQUESTED SEDATION TO BE RESTARTED D/T INCREASED RR. PROP RESTARTED TO ORIGINAL RATE OF 25 MCG.
[2023-01-18 04:29] LABS: Albumin, Blood 2.3 g/dL (3.4-5.0); Anion Gap 4 mmol/L (6-16); Blood Urea Nitrogen 18 mg/dL (8-24); Bun/Creatinine Ratio 31.9 (12.0-20.0); CO2, Blood 23 mmol/L (21-32); Calcium, Blood 7.8 mg/dL (8.5-10.1); Chloride, Blood 112 mmol/L (98-108); Creatinine, Blood 0.57 mg/dL (0.60-1.20); Glomerular Filtration Rate 112 (60-); Glucose, Blood 134 mg/dL (70-99); Phosphorus, Blood 1.9 mg/dL (2.5-4.9); Potassium, Blood 3.6 mmol/L (3.5-5.5); Sodium, Blood 139 mmol/L (136-145)
--- NOTE | 2023-01-18 05:08 | NUR ---
END OF SHIFT SUMMARY PT STILL INTUBATED AND SEDATED. NOT FOLLOWING COMMANDS AT THIS TIME. RESP- SBT WAS CUT SHORT OF LESS THAN 5 MINUTES D/T INCREASED RR AND IRREGULAR BREATHING. VENT AC/VC 14/400/8/35% CARDIAC- BP AND HR WNL WITH LEVO @ 4 MCG. MAP STEADY IN 70'S THIS SHIFT. SR WITH NO EPISODES OF PVC'S OR IRREGULARITIES UNLIKE A FEW NIGHTS PRIOR. GI, - NATHAN PATENT AND DRAINING TO GRAVITY. URINE IS YELLOW AND OUTPUT THIS SHIFT 1100 MLS. NO BM THIS SHIFT. SECRETIONS MINIMAL THROUGHOUT THE NIGHT. INTEG- NO CHANGED THIS SHIFT. HCG BATH GIVEN THIS SHIFT. WILL CONTINUE TO MONITOR PT UNTIL REPORT GIVEN TO DAYSHIFT RN.
[2023-01-18 06:18] LABS: BAND PERCENT MAN 1 % (0-8); BASOPHILS PERCENT MAN 0 % (0-2); EOSINOPHILS PERCENT MAN 0 % (0-6); LYMPHOCYTES ABSOLUTE MAN 3.29 K/mm3 (0.84-5.20); LYMPHOCYTES PERCENT MAN 37 % (21-46); METAMYELOCYTE ABSOLUTE MAN 0.08 K/mm3 (0.00-0.00); METAMYELOCYTE PERCENT MAN 1 % (0-0); MONOCYTES ABSOLUTE MAN 0.26 K/mm3 (0.16-1.47); MONOCYTES PERCENT MAN 3 % (4-13); MYELOCYTE ABSOLUTE MAN 0.17 K/mm3 (0.00-0.00); MYELOCYTE PERCENT MAN 2 % (0-0); NEUTROPHILS ABSOLUTE MAN 5.07 K/mm3 (1.96-9.15); SEG NEUTROPHILS PERCENT MAN 56 % (41-73); TOTAL CELLS COUNTED 100
--- NOTE | 2023-01-18 09:19 | NUR ---
CARE OF PT ASSUMED AT 0700. PT SEDATED ON PROPOFOL AT [facility]. PT GRIMACES WITH CARE. WILL DECREASED SEDATION TOLERATED. PT RESP 30'S WITH USE OF ABD MUSCLES, LUNGS VERY DIMINISHED T/O. LARGE AMT OF THICK YELLOW/YEN SECRETIONS. LEVOPHED AT 4MCG TO KEEP MAP >65. PITTING EDEMA TO RIGHT HAND AND FOOT. TUBE FEEDS AT GOAL. PHOS 1.9.
--- NOTE | 2023-01-18 10:16 | NUR ---
DR NIETO IN TO SEE PT. PROPOFOL PLACED ON STANDBY. PT'S AT BEDSIDE, GIVEN UPDATE
--- NOTE | 2023-01-18 11:08 | NUR ---
PROP HAS BEEN OFF >1HR. PT SLOWLY WAKING UP MORE, ATTEMPTS TO OPEN EYES, BUT CAN NOT. VERY WEAKLY DINKEY LOCOMOTIVE ENGINEER HANDS TO COMMAND BILAT. PT'S AT BEDSIDE. RESP 40-50, HR 110, SATS 87-90%. DR NIETO NOTIFIED AND AT BEDSIDE TO EVALUATE PT. PROPOFOL RESUMED AT 25MCG.
--- NOTE | 2023-01-18 16:34 | NUR ---
RESP RATE LOW 40'S, ATIVAN 2MG GIVEN. RESP NOW IN 20'S.
--- NOTE | 2023-01-18 18:31 | NUR ---
PROPOFOL PLACED ON STANDBY TODAY X1HR, PT ATTEMPTED TO OPEN EYES TO VOICE AND WEAKLY PROJECT ADMINISTRATIVE ASSISTANT HANDS TO COMMAND. UNABLE TO WEAN PT; OFF PROPOFOL HR INCREASED, RESP INCREASED, SATS DROPPED TO 87%. PROPOFOL RESUMED AT 20MCG AND DR NIETO ADDED ATIVAN PRN. 2 DOSES OF ATIVAN GIVEN WHICH HELPED DECREASE RESP FROM 40'S TO 20'S FOR A SHORT PERIOD. FIO2 WAS INCREASED TO 40% TO KEEP SPO2 >90%. TUBE FEEDS WERE DECREASED TO 35CC/HR PER NUTRITION. LEVOPHED REMAINED AT 4MCG FOR ENTIRE SHIFT. NA PHOS INFUSED. PT HAD LARGE AMT OF THICK SECRETIONS T/O SHIFT.
[2023-01-19 04:44] LABS: Hematocrit 25.7 % (37.0-53.0); Hemoglobin 8.6 g/dL (13.5-17.5); Mean Corpuscular HGB 34.1 pg (26.0-34.0); Mean Corpuscular HGB Conc 33.5 g/dL (31.5-36.5); Mean Corpuscular Volume 102 fL (80-100); Mean Platelet Volume 11.2 fL (9.1-12.4); NRBC ABSOLUTE 0.06 K/mm3 (0.00-0.02); NRBC Auto 0.7 /100 WBC (0.0-0.2); Platelet Count 181 K/mm3 (150-400); RDW Coefficient Variation 16.5 % (11.7-14.2); RDW Standard Deviation 60.1 fL (35.1-46.3); Red Blood Cell Count 2.52 M/mm3 (4.30-5.90); White Blood Cell Count 9.01 K/mm3 (4.00-11.30)
[2023-01-19 05:00] LABS: Anion Gap 4 mmol/L (6-16); Blood Urea Nitrogen 18 mg/dL (8-24); Bun/Creatinine Ratio 39.4 (12.0-20.0); CO2, Blood 24 mmol/L (21-32); Chloride, Blood 114 mmol/L (98-108); Creatinine, Blood 0.46 mg/dL (0.60-1.20); Glomerular Filtration Rate 119 (60-); Glucose, Blood 129 mg/dL (70-99); Magnesium, Blood 1.4 mg/dL (1.6-2.4); Phosphorus, Blood 2.7 mg/dL (2.5-4.9); Potassium, Blood 3.5 mmol/L (3.5-5.5); Sodium, Blood 142 mmol/L (136-145)
--- NOTE | 2023-01-19 05:13 | NUR ---
WEAN TRIAL PROP ON STANDBY AT 0413 AND SET TO SPONT WITH VENT. AT ONE HOUR LATER PT IS TOLERATING VENT WITH RR UNDER 30. RT IN ROOM WITH PT MONITORING DURING ENTIRE TRIAL. PT IS STILL ON SPONT. WILL CONTINUE TO MONITOR.
[2023-01-19 05:39] LABS: BAND PERCENT MAN 1 % (0-8); BASOPHILS PERCENT MAN 0 % (0-2); EOSINOPHILS PERCENT MAN 0 % (0-6); LYMPHOCYTES PERCENT MAN 30 % (21-46); METAMYELOCYTE ABSOLUTE MAN 0.09 K/mm3 (0.00-0.00); METAMYELOCYTE PERCENT MAN 1 % (0-0); MONOCYTES ABSOLUTE MAN 0.99 K/mm3 (0.16-1.47); MONOCYTES PERCENT MAN 11 % (4-13); NEUTROPHILS ABSOLUTE MAN 4.68 K/mm3 (1.96-9.15); SEG NEUTROPHILS PERCENT MAN 51 % (41-73); TOTAL CELLS COUNTED 100
[2023-01-19 05:40] LABS: MYELOCYTE ABSOLUTE MAN 0.54 K/mm3 (0.00-0.00); MYELOCYTE PERCENT MAN 6 % (0-0)
--- NOTE | 2023-01-19 05:44 | NUR ---
END OF SHIFT SUMMARY PT SEDATED AND INTUBATED MOST OF THE NIGHT. WEAN TRIAL STILL IN EFFECT. RT ON STANDBY IF PT DECLINES ON TRIAL. PROP ON STANDBY. RESP- CLEAR BILATERALLY THROUGHOUT. SPO2 >93%. VENT AT 14/400/8/40% ALL NIGHT UNTIL 412. CARDIAC- MULTIPLE EPISODES OF IRREGULAR HR THROUGHOUT THE SHIFT. SR OTHERWISE. 3+ PITTING EDEMA RLE AND BUE GI, - SMALL BM MID SHIFT. STOOL WAS LOOSE BUT NOT DIARRHEA. TF AT GOAL RATE 50 MLS/HR WITH FLUSH OF 150 MLS Q4. PROP- SB LEVO- 3 MCG NS -100 MLS/HR PRECEDEX 0.5 MCG WILL CONTINUE TO MONITOR UNTIL REPORT GIVEN TO DAYSHIFT RN.
--- NOTE | 2023-01-19 12:40 | NUR ---
0800 ASSUMED CARE OF PATIENT. PATIENT IS ON THE VENTILATOR HOWEVER ON SPONTANEOUS SETTINGS FOR A WEAN. HE IS ON 0.5 OF PRECEDEX AND LEVOPHED AT 3MCG AND NS AT 100ML/HR. SPOKE WITH DR MORRISSEY AND SHE STOPPED THE NS. SPOKE WITH DR NIETO AND HE WANTS THE SEDATION DOWN TO OFF IF POSSIBLE. HE HAS A DISTENDED ABDOMEN BUT SOFT. HIS NATHAN IS IN PLACE WITH GOOD OUTPUT. HE HAS EDEMA TO HIS HANDS BILAT. AND RIGHT FOOT MORE THAN HIS LEFT, 3 + EDEMA. PUPIL PINPOINT THIS AM. HE GRIMMACES TO CHEST PALPATATIONS. WILL CONTINUE TO ASSESS VS AND PAIN AND MOBILITY. HE IS NOT MOVING AN EXTREMETIES ON HIS OWN YET AT THIS TIME. DOING ROM EVERY 2 HR WITH TURNS.
--- NOTE | 2023-01-19 12:48 | NUR ---
NOON ASSESSMENT. PATIENT IS OFF SEDATION SINCE 1100 AND ONLY GET FENTANYL ONE TIME THIS AM. JUST GIVEN TYLENOL DOWN OG. HE HAS HIS TUBE FEEDING GOING AND HIS RESIDUAL IS ONLY 20ML/HR. HE WILL GRIMMACE TO PAIN BUT IS STILL NOT MOVING ANY EXTREMETIES TO COMMAND OR ON HIS OWN. WAS AT BEDSIDE FOR A SHORT TIME THIS AM AND AN UPDATE WITH GIVEN VIA THE PHONE. HE IS GETTING MG REPLACMENT IV BESIDES OG. LEVOPHED STILL AT 3MCG KEEPING MAP GREATER THAN 65. LUNGS ARE COURSE ON RIGHT SIDE BUT CLEAR ON LEFT. HE HAS MODERATE AMOUNT OF FROTHY WHITE SECRETIONS FROM ETT. WILL CONTINUE TO ASSESS AND TRY TO WAKE WHILE MANAGING VS. TUBE FEEDING STILL GOING AT GOAL OF 50ML/HR AND FREE WATER OF 150ML Q4 HR. SODIUM WAS 142 THIS AM. NS THAT WAS AT 100ML / HR IS DC'D.
--- NOTE | 2023-01-19 15:06 | NUR ---
1500.... STOPPED WEAN. PATIENT BECAME MORE TACHYCARDIC (1TEENS) AND TACHYPNEA UP TO 45 BREATHS PER MIN. HE HAD MORE FROTHY SECRETIONS AND APPEARED TO BECOMING MORE TIRED. RT PUT HIM BACK ON THE VENTILATOR SETTINGS WITH A VC PLUS MODE. PRECEDEX PUT BACK ON TO 0.5MCG/KG/MIN. FAMILY AT BEDSIDE. EXPLAINED HIS CONDITION TO HIS BROTHER AND [id number]. HE LASTED ON SPONTANEOUS FOR 11 HRS TODAY.
--- NOTE | 2023-01-19 18:57 | NUR ---
SUMMARY SHIFT REPORT PATIENT WAS ON SEDATION VACATION AND A WEAN FOR 11 HRS TODAY. HE DID BECOME TACHYPNIC AND TACHYCARDIC WITH FROTHY SPUTUM BEFORE HE WAS PUT BACK ON PRECEDEX. HE WAS ABLE TO FOLLOW SIMPLE COMMANDS AND MOVE HIS TOES, FEET, KNEES, AND SHOULDERS. HE WAS ABLE TO OPEN HIS EYES TO COMMAND BUT IT TOOK A WHILE FOR HIM TO BE OFF SEDATION FOR THIS TO HAPPEN. HE SEDATED AND PULSE RATE IS DOWN TO 70'S AND RR DOWN TO 20'S. HE HAS A RECTAL TUBE IN PLACE NOW DUE TO LOOSE STOOLS. WILL GIVE REPORT TO NEXT SHIFT TO RESUME CARE.
--- NOTE | 2023-01-19 20:00 | NUR ---
ASSUMED CARE OF PT AT 1915. REPORT RECIEVED AT BEDSIDE. PT PRESENTS IN BED. INTUBATED. AC/VC + 14, Tv 400, FIO2 30 PERCENT, PEEP 8. PT MAINTAINS SATURATIONS > 90 PERCENT. PRECEDEX DRIP FOR SEDATION AT 0.5 MCG'S/KG/HOUR. LEVOPHED FOR BLOOD PRESSURE SUPPORT AT 3 MCG'S/MIN. WILL REVIEW CHART AND PLAN OF CARE FOR THIS PT.
--- NOTE | 2023-01-19 23:00 | NUR ---
PT'S CALLS IN TO CHECK ON PT. UPDATE GIVEN. PT HAS BEEN SUCTIONED PER ETT SEVERAL TIMES WITH RETURN OF LARGE AMOUNT OF WHITE COLORED SECRETIONS. PT MAINTAINS > 90 PERCENT SATURATIONS. TUBE FEEDING CONTINUES AT GOAL. PT TOLERATING THIS WELL. WILL CONTINUE TO MONITOR.
[2023-01-20 04:57] LABS: Hematocrit 27.9 % (37.0-53.0); Hemoglobin 9.4 g/dL (13.5-17.5); Mean Corpuscular HGB 33.9 pg (26.0-34.0); Mean Corpuscular HGB Conc 33.7 g/dL (31.5-36.5); Mean Corpuscular Volume 101 fL (80-100); Mean Platelet Volume 11.8 fL (9.1-12.4); NRBC ABSOLUTE 0.18 K/mm3 (0.00-0.02); NRBC Auto 1.4 /100 WBC (0.0-0.2); Platelet Count 191 K/mm3 (150-400); RDW Coefficient Variation 16.4 % (11.7-14.2); RDW Standard Deviation 58.3 fL (35.1-46.3); Red Blood Cell Count 2.77 M/mm3 (4.30-5.90); White Blood Cell Count 12.99 K/mm3 (4.00-11.30)
--- NOTE | 2023-01-20 05:38 | NUR ---
PT PLACED TO SPONTANEOUS WITH PRESSURE SUPPORT 10, WITH PEEP 8.0, FIO2 30 PERCENT. PT HAS PRECEDEX BROUGHT TO 0.2 MCG'S/KG/HOUR. TOLERATES TURNS WELL. DIGNISHIELD CONTINUES WITH YEN COLORED DRAINAGE. TUBE FEEDING AT GOAL. MAINTAINS > 90 PERCENT WITH VENT. BLOOD PRESSURES WITH MAP > 65 WITH LEVOPHED AT 3. WILL CONTINUE TO MONITOR PT, AND WILL REPORT OFF TO ONCOMING RN.
[2023-01-20 05:41] LABS: Albumin, Blood 2.2 g/dL (3.4-5.0); Albumin/Globulin Ratio 0.7 (0.8-1.8); Bilirubin, Direct 0.9 mg/dL (0.0-0.3); Bilirubin, Indirect 0.3 mg/dL (0.1-0.7); Bilirubin, Total 1.2 mg/dL (0.1-1.0); Bun/Creatinine Ratio 47.2 (12.0-20.0); Calcium, Blood 8.5 mg/dL (8.5-10.1); Creatinine, Blood 0.45 mg/dL (0.60-1.20); Globulin, Blood 3.3 g/dL (2.2-4.0); Magnesium, Blood 1.7 mg/dL (1.6-2.4); Phosphorus, Blood 2.5 mg/dL (2.5-4.9); Potassium, Blood 3.7 mmol/L (3.5-5.5); Total Protein, Blood 5.5 g/dL (6.4-8.2)
[2023-01-20 05:51] LABS: BAND PERCENT MAN 1 % (0-8); BASOPHILS PERCENT MAN 0 % (0-2); EOSINOPHILS ABSOLUTE MAN 0.12 K/mm3 (0.00-0.68); EOSINOPHILS PERCENT MAN 1 % (0-6); LYMPHOCYTES ABSOLUTE MAN 3.76 K/mm3 (0.84-5.20); LYMPHOCYTES PERCENT MAN 29 % (21-46); METAMYELOCYTE ABSOLUTE MAN 0.38 K/mm3 (0.00-0.00); METAMYELOCYTE PERCENT MAN 3 % (0-0); MONOCYTES ABSOLUTE MAN 1.42 K/mm3 (0.16-1.47); MONOCYTES PERCENT MAN 11 % (4-13); MYELOCYTE ABSOLUTE MAN 0.51 K/mm3 (0.00-0.00); MYELOCYTE PERCENT MAN 4 % (0-0); PROMYELOCYTE ABSOLUTE MAN 0.12 K/mm3 (0.00-0.00); PROMYELOCYTE PERCENT MAN 1 % (0-0); TOTAL CELLS COUNTED 100
[2023-01-20 05:52] LABS: NEUTROPHILS ABSOLUTE MAN 6.49 K/mm3 (1.96-9.15); SEG NEUTROPHILS PERCENT MAN 49 % (41-73)
--- NOTE | 2023-01-20 07:25 | NUR ---
PT'S ARIK HAD LEAKAGE AROUND INSERTION. DID CHANGE PT. REPOSITIONED. PT.
--- NOTE | 2023-01-20 09:03 | NUR ---
Assumed care at approximately 0700. Pt in bed, ventilated via ETT. Vent setting: Spontanteous 09/05, 30% Fi02. Precedex infusing at 0.2 mcg/kg/hr, Levophed infusing at 3 mcg/min initially but titrated off for BP in normal range. R/IJ central line in place, WNL. Martinez catheter in place, rectal tube in place. VS WNL, continue to monitor.
--- NOTE | 2023-01-20 18:42 | NUR ---
Shift summary. Pt rested in bed throughout shift, extubated to BIPAP at 0925, BIPAP settings 18/10, 40%. Pt tolerates breaks from BIPAP on high flow 02 via humidified NC at 8L/min. notified of status change, in to see PT twice during shift. R/central line dressing/caps changed, WNL. KVO NS infusing. Martinez catheter in place, rectal tube in place, draining to gravity. VS stable throughout shift. See assessments/notes for further details. Will continue to monitor and report off to nightshift RN.
--- NOTE | 2023-01-20 20:02 | NUR ---
ASSUMED CARE OF PT AT 1900. REPORT RECEIVED IN ROOM. PT PRESENTS IN BED. BIPAP IN PLACE. PT TOLERATING THIS FAIR. RT IN TO SEE PT. NT SUCTIONING DONE SECONDARY TO PT HAVING ISSUES WITH CLEARING SECRETIONS. PER REPORT FROM RT, WAS ABLE TO RETURN COPIOUS AMOUNTS OF WHITE SECRETIONS. PT MAINTAINS > 90 PERCENT SATURATIONS. WILL REVIEW CHART AND PLAN OF CARE FOR THIS PT.
--- NOTE | 2023-01-21 01:17 | NUR ---
HAVE SUCTIONED PT WITH DEEP SUCTIONING THRU THE MOUTH. PT DEMONSTRATES DIMINISHED GAG REFLEX. WAS ABLE TO CLEAR MODERATE AMOUNT OF SECRETIONS. THIN AND WHITE COLOR. PT ENCOURAGED TO DEEP COUGH WITH THIS. PT MEDICATED WITH 50 MCG'S FENTANYL FOR GRIMACE WITH TURNS. WILL CONTINUE TO MONITOR
[2023-01-21 05:28] LABS: Hematocrit 25.3 % (37.0-53.0); Hemoglobin 8.4 g/dL (13.5-17.5); Mean Corpuscular HGB 34.4 pg (26.0-34.0); Mean Corpuscular HGB Conc 33.2 g/dL (31.5-36.5); Mean Corpuscular Volume 104 fL (80-100); Platelet Count 160 K/mm3 (150-400); RDW Coefficient Variation 16.9 % (11.7-14.2); RDW Standard Deviation 61.3 fL (35.1-46.3); Red Blood Cell Count 2.44 M/mm3 (4.30-5.90); White Blood Cell Count 11.77 K/mm3 (4.00-11.30)
[2023-01-21 05:50] LABS: Calcium, Blood 8.9 mg/dL (8.5-10.1); Creatinine, Blood 0.45 mg/dL (0.60-1.20); Magnesium, Blood 1.8 mg/dL (1.6-2.4); Phosphorus, Blood 4.3 mg/dL (2.5-4.9); Potassium, Blood 3.7 mmol/L (3.5-5.5)
[2023-01-21 05:54] LABS: BAND PERCENT MAN 2 % (0-8); BASOPHILS PERCENT MAN 0 % (0-2); EOSINOPHILS ABSOLUTE MAN 0.11 K/mm3 (0.00-0.68); EOSINOPHILS PERCENT MAN 1 % (0-6); LYMPHOCYTES ABSOLUTE MAN 1.64 K/mm3 (0.84-5.20); LYMPHOCYTES PERCENT MAN 14 % (21-46); MONOCYTES ABSOLUTE MAN 0.58 K/mm3 (0.16-1.47); MONOCYTES PERCENT MAN 5 % (4-13); MYELOCYTE ABSOLUTE MAN 0.58 K/mm3 (0.00-0.00); MYELOCYTE PERCENT MAN 5 % (0-0); PROMYELOCYTE ABSOLUTE MAN 0.11 K/mm3 (0.00-0.00); PROMYELOCYTE PERCENT MAN 1 % (0-0); SEG NEUTROPHILS PERCENT MAN 72 % (41-73); TOTAL CELLS COUNTED 100
--- NOTE | 2023-01-21 06:42 | NUR ---
PT HAS BEEN SOMEWHAT ANXIOUS THIS MORING. HAS BEEN TRYING TO MOUTH WORDS OF WHAT HE WANTS. ALSO HAS TRIED TO WRITE OUT HE NEEDS. UNFORTUNATELY HIS WRITING IS NOT READABLE. HAVE BEEN ABLE TO ANSWER QUESTIONS AND PROVIDE FOR NEEDS WHEN HE WAS UNDERSTANDABLE. HAVE PLACED PT TO 8 LITERS OXYGEN AND HAVE SINCE DECREASED TO 6 LITERS PER MINUTE. PT MAINTAINS > 90 PERCENT SATURATIONS. PT CONTINUES WITH DIGNISHIELD IN PLACE WITHOUT LEAKAGE. 525 ML LIQUID STOOL OUTPUT. WILL CONTINUE TO MONITOR PT, AND WILL REPORT OFF TO ONCOMING RN.
--- NOTE | 2023-01-21 07:15 | NUR ---
Assumed care of pt at 0700. Report received from Tereso PRO. Pt is alert. Follows directions, follows commands. Pleasant and cooperative with care. Verbalizes needs, but voice is a faint whisper and this form of communication is dependent on being able to read the patient's lips as well. SpO2 90% or greater with 6 LPM NC. SR per monitor. BP stable.
--- NOTE | 2023-01-21 17:51 | NUR ---
SUMMARY Pt has been changed to PCU status, per Dr Pool and Dr Mendoza. No acute changes to initial assessment. Pt is alert. Oriented x 2. Persistently tries to communicate and staff/family is unable to understand despite being close to patient, reading his lips, using communication board, and using pen/paper. Pt's writing is illegible. Pt provided with his glasses but this did not improve writing. Pt does not have strength or fine motor skills to use communication board. Pt's requests are typically questions about events in his personal life / family and never about pain, hunger, toileting, or symptoms he is experiencing. Most recently, he asked his brother, and sister in law to get a hold of his estranged granddaughter Tamra. Currently, pt is SR per monitor with a stable BP. SpO2 is 95% with 2 LPM NC. He is tachypneic, but according to Dr Pool, this is the patient's baseline as he was tachypneic on the ventilator as well. He has paradoxical breathing. Denies chest pain or shortness of breath. Pt has a weak cough, but has gotten stronger as the day has progressed. Pt failed speech eval, but is permitted to have meds crushed in applesauce. He tolerated his morning medications well. Martinez and rectal tube are patent and draining.
--- NOTE | 2023-01-21 20:00 | NUR ---
ASSUMED CARE OF PT AT 1900. REPORT RECEIVED AT BEDSIDE. PT PRESENTS IN BED. NASAL CANNULA AT 1 L/M TO MAINTAIN SATURATIONS > 90 PERCENT. PT DOES HAVE PARADOXYL CHEST MOVEMENT NOTED TO BE PROBABLE FLAIL CHEST. PT DEMONSTRATES A WEAK COUGH EFFORT. VERY DIFFICULT TO UNDERSTAND HIS NEEDS WITH SOFT WHISPERED WORDS. AND DAUGHTER IN LAW AT BEDSIDE. PT DOES INDICATE THAT HE IS HAVING SOME RESPIRATORY/CHEST PAIN. WILL REVIEW CHART AND PLAN OF CARE FOR THIS PT.
--- NOTE | 2023-01-22 01:30 | NUR ---
CENTRAL LINE REMOVED FROM RIGHT IJ. DID HAVE SLIGHT OOZING FROM SITE. PRESSURE HELD. ONCE HEMOSTATIS ACHIEVED. KEATON DRESSING PLACED. HAVE DONE GOOD ORAL CARE FOR PT AND HAD HIM ATTEMPT THIS HIMSELF. THIS RN COMPLETED. DID GIVE PT HIS MEDS CRUSHED IN APPLESAUCE. WORKED WITH PT ON SAFE SWALLOW TECHNIQUES. BETZAIDA WALLACE WAS HELPFUL.
--- NOTE | 2023-01-22 01:35 | NUR ---
PT TRANSFERS TO ROOM PCU 17 FROM ICU. REPORT WAS CALLED. DONE IN SBAR FASHION. ALLOWED FOR QUESTIONS. PT SLIDE TRANSFERRED TO BED. TOLERATED THIS WELL.
[2023-01-22 04:07] LABS: Hematocrit 27.2 % (37.0-53.0); Hemoglobin 8.8 g/dL (13.5-17.5); Mean Corpuscular HGB Conc 32.4 g/dL (31.5-36.5); Mean Corpuscular Volume 105 fL (80-100); Mean Platelet Volume 11.7 fL (9.1-12.4); NRBC ABSOLUTE 0.02 K/mm3 (0.00-0.02); NRBC Auto 0.2 /100 WBC (0.0-0.2); Platelet Count 175 K/mm3 (150-400); RDW Coefficient Variation 17.4 % (11.7-14.2); RDW Standard Deviation 64.8 fL (35.1-46.3); Red Blood Cell Count 2.59 M/mm3 (4.30-5.90); White Blood Cell Count 12.23 K/mm3 (4.00-11.30)
[2023-01-22 04:27] LABS: Magnesium, Blood 1.6 mg/dL (1.6-2.4)
[2023-01-22 05:33] LABS: Albumin, Blood 2.4 g/dL (3.4-5.0); Albumin/Globulin Ratio 0.8 (0.8-1.8); Bilirubin, Total 1.3 mg/dL (0.1-1.0); Bun/Creatinine Ratio 43.6 (12.0-20.0); Calcium, Blood 8.9 mg/dL (8.5-10.1); Creatinine, Blood 0.48 mg/dL (0.60-1.20); Globulin, Blood 3.2 g/dL (2.2-4.0); Phosphorus, Blood 4.3 mg/dL (2.5-4.9); Total Protein, Blood 5.6 g/dL (6.4-8.2)
--- NOTE | 2023-01-22 05:50 | NUR ---
SHIFT SUMMARY ASSUMED CARE OF PT AT 0200. PT IS A/OX2, PT HAS CONFUSION AT TIMES. FOR EXAMPLE, ASKING THIS NURSE TO TAKE THE BIPAP MACHINE OFF THE SHELF AND PUTTING IT IN THE FRIDGE. PT CAN ONLY SPEAK IN A WHISPER. HEART SOUNDS REGULAR. LUNG SOUNDS HAVE CRACKLES. PT ON 2L NC T/O THE NIGHT. PT REPIRATIONS WERE STABLE ON TRANSFER. PT CHEST WAS INDENTED AND BREATHING IRREGULAR. PT HAS BRUSING T/O BODY. PT HAS RECTAL TUBE WITH LOOSE BOWEL MOVEMENTS. NATHAN DRAINING CLEAR YELLOW URINE. AT AROUND 0500 PT BECAME MORE AGITATED AND MORE DIFFICULT TO UNDERSTAND. PT RESPIRATIONS INCREASED AND PT HARD A HARDER WORK OF BREATHING. PT WOULD POINT TO CHEST AND SAY HE WAS IN PAIN. RESIDENT CALLED AND SAID TO TREAT PT ANXIETY TO IMPROVE RESPIRATIONS. PT BECAME SLEEPY AFTER MEDICATIONS AND HAS BEEN RESTING SINCE.
--- NOTE | 2023-01-22 18:53 | NUR ---
END OF SHIFT NOTE PT WAKES TO VERBAL STIMULATION. VSS. SPO2 > 92% ON 2L NC. RR 20s-30s. MONITOR SHOWING SR, HR 80s-90s. PT ATTEMPTS TO TALK, BUT NO SOUND COMES OUT. PT W/ HARSH WHISPER ATTEMPT AT THE WORD "7" WHEN REPORTING PAIN TODAY. PT NOW WHISPERING SLIGHTLY THIS EVENING, NOW ABLE TO STATE NAME "[facility]" & LOCATION "[facility]". NATHAN CATH PATENT & DRAINING YELLOW URINE. RECTAL TUBE W/ SMALL AMOUNT OF DARK BROWN/GREEN LOOSE STOOL. PT FAMILY INTERMITTENTLY AT BEDSIDE T/O SHIFT.
[2023-01-23 04:24] LABS: Hemoglobin 9.5 g/dL (13.5-17.5); Mean Corpuscular HGB 34.7 pg (26.0-34.0); Mean Corpuscular HGB Conc 32.8 g/dL (31.5-36.5); Mean Corpuscular Volume 106 fL (80-100); Mean Platelet Volume 11.2 fL (9.1-12.4); Platelet Count 198 K/mm3 (150-400); RDW Coefficient Variation 17.2 % (11.7-14.2); RDW Standard Deviation 65.1 fL (35.1-46.3); Red Blood Cell Count 2.74 M/mm3 (4.30-5.90); White Blood Cell Count 11.15 K/mm3 (4.00-11.30)
[2023-01-23 04:47] LABS: Albumin, Blood 2.5 g/dL (3.4-5.0); Albumin/Globulin Ratio 0.7 (0.8-1.8); Bilirubin, Total 1.4 mg/dL (0.1-1.0); Bun/Creatinine Ratio 42.5 (12.0-20.0); Calcium, Blood 8.9 mg/dL (8.5-10.1); Creatinine, Blood 0.42 mg/dL (0.60-1.20); Globulin, Blood 3.6 g/dL (2.2-4.0); Magnesium, Blood 1.8 mg/dL (1.6-2.4); Phosphorus, Blood 3.7 mg/dL (2.5-4.9); Potassium, Blood 3.9 mmol/L (3.5-5.5); Total Protein, Blood 6.1 g/dL (6.4-8.2)
--- NOTE | 2023-01-23 06:22 | NUR ---
SHIFT SUMMARY ASSUMED CARE OF PT AT 1900. PT IS A/OX1-2. PT HAS TIMES OF CONFUSION. HEART SOUNDS REGULAR. LUNG SOUNDS HAVE CRACKLES T/O PT REMAINED ON 2L NC. PT CHEST WAS IRREGULAR. RESPIRATIONS INCREASED T/O THE NIGHT. PT REMAINED IN PAIN AND FUSTRATED T/O THE NIGHT. SAYING HE WANTS TO GO HOME AND DOESNT CARE THAT HE NEEDS TO WORK WITH THERAPY. PT PULLED AT CORDS, TOOK OUT IV, AND DEROBBED HIMSELF MULTIPLE TIMES TONIGHT. PT DID NOT SLEEP WELL. PT NATHAN DRAINING WITH GRAVITY. RECTAL TUBE HAD NO OUTPUT. DR ARMSTRONG SAW FAMILY AT AROUND 2100. REPORTED TO THIS NURSE ORDERS FOR AM.
--- NOTE | 2023-01-23 18:15 | NUR ---
END OF SHIFT NOTE PT SLEEPING HEAVILY BEGINNING OF SHIFT, MORE AWAKE EARLY AFTERNOON & ON. PT ABLE TO MOUTH & SOMEWHAT WHISPER AT TIMES. PT ANSWERING NAME & LOCATION ONLY. PT REQUESTING WATER, BUT FAILED ST EVAL. PT VSS. SPO2 > 92% ON 2L NC. RR 30s W/ CHEST IRREGULARITY W/ BREATHING. MONITOR SHOWING SR, HR 80s-90s. PT C/O PAIN T/O CHEST W/ EACH PAIN RATING T/O SHIFT "7". WHEN ASKING PT IF PAIN IS BETTER AFTER PAIN MEDICATION, PT NODS HEAD YES, BUT CONSISTENTLY RATES PAIN "7" UPON EACH ASSESSMENT. PT REQUIRING 2 PERSON MAX ASSIST FOR Q2H REPOSITIONING, BUT PT NOW ASSISTING W/ REPOSITIONING. NATHAN CATH PATENT & DRAINING YELLOW URINE. RECTAL TUBE W/ MINIMAL AMOUNT OF DARK BROWN/GREEN LOOSE STOOL.
[2023-01-24 04:19] LABS: BASOPHILS ABSOLUTE AUTO 0.06 K/mm3 (0.00-0.23); BASOPHILS PERCENT AUTO 1 % (0-2); EOSINOPHILS ABSOLUTE AUTO 0.05 K/mm3 (0.00-0.68); EOSINOPHILS PERCENT AUTO 1 % (0-6); Hematocrit 30.7 % (37.0-53.0); Hemoglobin 9.8 g/dL (13.5-17.5); IMMATURE GRAN ABSOLUTE AUTO 0.16 K/mm3 (0.00-0.10); IMMATURE GRAN PERCENT AUTO 2 % (0-1); LYMPHOCYTES ABSOLUTE AUTO 1.88 K/mm3 (0.84-5.20); LYMPHOCYTES PERCENT AUTO 19 % (21-46); MONOCYTES ABSOLUTE AUTO 0.94 K/mm3 (0.16-1.47); MONOCYTES PERCENT AUTO 10 % (4-13); Mean Corpuscular HGB 34.4 pg (26.0-34.0); Mean Corpuscular HGB Conc 31.9 g/dL (31.5-36.5); Mean Corpuscular Volume 108 fL (80-100); Mean Platelet Volume 10.8 fL (9.1-12.4); NEUTROPHILS ABSOLUTE AUTO 6.84 K/mm3 (1.96-9.15); NEUTROPHILS PERCENT AUTO 69 % (41-73); Platelet Count 207 K/mm3 (150-400); RDW Coefficient Variation 17.1 % (11.7-14.2); RDW Standard Deviation 66.3 fL (35.1-46.3); Red Blood Cell Count 2.85 M/mm3 (4.30-5.90); White Blood Cell Count 9.93 K/mm3 (4.00-11.30)
[2023-01-24 04:42] LABS: Albumin, Blood 2.6 g/dL (3.4-5.0); Albumin/Globulin Ratio 0.8 (0.8-1.8); Bilirubin, Total 1.5 mg/dL (0.1-1.0); Bun/Creatinine Ratio 39.7 (12.0-20.0); Calcium, Blood 9.2 mg/dL (8.5-10.1); Creatinine, Blood 0.38 mg/dL (0.60-1.20); Globulin, Blood 3.4 g/dL (2.2-4.0); Magnesium, Blood 1.5 mg/dL (1.6-2.4); Potassium, Blood 3.9 mmol/L (3.5-5.5)
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
--- NOTE | 2023-01-24 17:31 | NUR ---
Shift Summary Pt alert, oriented to person, family, place; only mouths or whispers. Pt resting in bed, repositioned q2 t/o shift. Pt denies pain, chest pain/pressure, sob, nasuea, dizziness and numb/tingling when asked. Pt tele sinus with pvc, bp stable. Right radial site recovered, tegaderm and armboard in place. Spo2 >90% on 2l o2 via nc, when removed pt desaturated to mid 80's. Martinez in place and draining. Other vss. No other acute chagnes noted. Will continue to monitor until report given to oncoming rn.
--- NOTE | 2023-01-25 05:32 | NUR ---
SHIFT SUMMARY PT A&0 X3, PLEASANT AND COOPERATIVE WITH CARE. PT SPEECH IS SOFT AND AT TIMES PT STRUGGLES TO GET WORDS OUT. PT ANIXOUS AND RESTLESS THROUGHOUT SHIFT, PT ALSO REPORTS SOME PAIN THROUGHOUT SHIFT. PT MEDICATED PER EMAR FOR PAIN AND RESTLESSNESS; WELL REPOSITIONING AND UNINTERRUPTED REST PROVIDED. PT DOES CONTINUE TO PULL OUT O2 NC AT TIMES, WELL PULLS AT LINES, CORDS AND TUBES BUT EASILY REMINDED AND REDIRECTABLE. VSS THROUGHOUT SHIFT. PT CURRENTLY ON 2 -3 L NC, SPO2 >96%. WHEN O2 CANNULA OUT, SPO2 DECREASES; O2 INCREASED TO 6 - 7 L AND PT RECOVERS FAILRY WELL. RECTAL TUBE REMOVED D/T LEAKING AND PULLED. OUTPUT MINIMAL, ATTENDS IN PLACE. NO BM SINCE REMOVAL OF RECTAL TUBE. NATHAN IN PLACE AND DRAINING TO GRAVITY. PT NOW RESTING COMFORTABLY, CALL LIGHT IN REACH AND BED IN LOWEST POSITION.
--- NOTE | 2023-01-25 08:19 | NUR ---
Am note Assumed care of patient at approx 0700, pt restless this am pulling of nc, clothing and tele. Pt alert, oriented to person, place; pt speaks with whispers or mouths words, at times is hard to understand. Pt resting in bed, repositioned this am, bed in low, bed alarm in place. Pt reports pain, medicated per emar. Pt breathing flail and paradoxical breathing, spo2 >90% while on 4L o2 via nc, pt removes frequently and desaturates to mid 80's. Tele sinus 90's, bp stable. Martinez in place patent and draining. Other vss. No other acute changes noted. Will continue to monitor.
[2023-01-25 11:57] LABS: BASOPHILS ABSOLUTE AUTO 0.04 K/mm3 (0.00-0.23); BASOPHILS PERCENT AUTO 0 % (0-2); EOSINOPHILS ABSOLUTE AUTO 0.04 K/mm3 (0.00-0.68); EOSINOPHILS PERCENT AUTO 0 % (0-6); Hematocrit 30.7 % (37.0-53.0); Hemoglobin 9.8 g/dL (13.5-17.5); IMMATURE GRAN ABSOLUTE AUTO 0.14 K/mm3 (0.00-0.10); IMMATURE GRAN PERCENT AUTO 1 % (0-1); LYMPHOCYTES ABSOLUTE AUTO 1.78 K/mm3 (0.84-5.20); LYMPHOCYTES PERCENT AUTO 18 % (21-46); MONOCYTES PERCENT AUTO 9 % (4-13); Mean Corpuscular HGB 34.8 pg (26.0-34.0); Mean Corpuscular HGB Conc 31.9 g/dL (31.5-36.5); Mean Corpuscular Volume 109 fL (80-100); Mean Platelet Volume 10.6 fL (9.1-12.4); NEUTROPHILS ABSOLUTE AUTO 6.98 K/mm3 (1.96-9.15); NEUTROPHILS PERCENT AUTO 71 % (41-73); Platelet Count 220 K/mm3 (150-400); RDW Standard Deviation 68.6 fL (35.1-46.3); Red Blood Cell Count 2.82 M/mm3 (4.30-5.90); White Blood Cell Count 9.88 K/mm3 (4.00-11.30)
[2023-01-25 12:18] LABS: Albumin, Blood 2.7 g/dL (3.4-5.0); Albumin/Globulin Ratio 0.8 (0.8-1.8); Bilirubin, Total 1.5 mg/dL (0.1-1.0); Bun/Creatinine Ratio 30.9 (12.0-20.0); Calcium, Blood 9.1 mg/dL (8.5-10.1); Creatinine, Blood 0.36 mg/dL (0.60-1.20); Globulin, Blood 3.6 g/dL (2.2-4.0); Potassium, Blood 3.6 mmol/L (3.5-5.5); Total Protein, Blood 6.3 g/dL (6.4-8.2)
--- NOTE | 2023-01-25 18:49 | NUR ---
Shift Summary No acute changes noted t/o shift. Pt 3-6l o2 via nc t/o shift. New orders per Dr Mendoza for clinimix. Other vss. Will continue to monitor until report given to oncoming rn.
[2023-01-26 04:29] LABS: BASOPHILS ABSOLUTE AUTO 0.05 K/mm3 (0.00-0.23); BASOPHILS PERCENT AUTO 1 % (0-2); EOSINOPHILS ABSOLUTE AUTO 0.05 K/mm3 (0.00-0.68); EOSINOPHILS PERCENT AUTO 1 % (0-6); Hematocrit 31.2 % (37.0-53.0); Hemoglobin 9.9 g/dL (13.5-17.5); IMMATURE GRAN ABSOLUTE AUTO 0.14 K/mm3 (0.00-0.10); IMMATURE GRAN PERCENT AUTO 1 % (0-1); LYMPHOCYTES PERCENT AUTO 19 % (21-46); MONOCYTES ABSOLUTE AUTO 0.98 K/mm3 (0.16-1.47); MONOCYTES PERCENT AUTO 10 % (4-13); Mean Corpuscular HGB 34.6 pg (26.0-34.0); Mean Corpuscular HGB Conc 31.7 g/dL (31.5-36.5); Mean Corpuscular Volume 109 fL (80-100); Mean Platelet Volume 10.7 fL (9.1-12.4); NEUTROPHILS ABSOLUTE AUTO 7.11 K/mm3 (1.96-9.15); NEUTROPHILS PERCENT AUTO 69 % (41-73); Platelet Count 209 K/mm3 (150-400); RDW Coefficient Variation 17.2 % (11.7-14.2); RDW Standard Deviation 68.5 fL (35.1-46.3); Red Blood Cell Count 2.86 M/mm3 (4.30-5.90); White Blood Cell Count 10.33 K/mm3 (4.00-11.30)
[2023-01-26 05:22] LABS: Magnesium, Blood 2.1 mg/dL (1.6-2.4)
--- NOTE | 2023-01-26 05:55 | NUR ---
SUMMARY PT INTERMITTENTLY RESTLESS AND AGITATED THROUGHOUT NOC, REMOVING TELEMETRY LEADS, PULLING AT NATHAN CATHETER, PUTTING LEGS OUT OF BED OVER BEDRAIL AND ATTEMPTING TO SIT UP, REMOVING BIOX PROBE, ATIVAN IV PRN AND FENTANYL IV PRN HAVE BEEN USED PER ORDERS, SEE EMAR. FENTANYL IS NOTED MOST EFFECTIVE IN AGITATION IMPROVEMENT ALTHOUGH PT DENIES PAIN, HE IS ALSO NOTED TO GRIMACE WITH TOUCH OF STETHOSCOPE TO CHEST FOR HEART AND LUNG AUSCULTATIONS, HE CONTINUES TO HAVE PARADOXICAL MOTION TO THIS CHEST WITH BREATHING SO PAIN CONTROL WAS PRIORITIZED THIS SHIFT. VOICE QUALITY CONTINUES TO BE WHISPER AT BEST THIS SHIFT. SPOUSE AND DAUGHTER CAME TO VISIT AT HS AND EXPLAINED THAT PT HAS BASELINE ANXIETY OVER BEING HOSPITALIZED "HE HATES HOSPITALS." DISCUSSED POSSIBLE PRESENTATIONS OF PAIN WITH SLIGHT CONFUSION WELL POTENTIAL FOR ANXIETY DRIVEN AGITATION, DISCUSSED REASONS FOR PRIORITIZING PAIN CONTROL, UNDERSTANDING WAS VERBALIZED. OTHERWISE NO ACUTE CHANGES THROUGHOUT NOC.
[2023-01-26 06:38] LABS: Albumin, Blood 2.5 g/dL (3.4-5.0); Albumin/Globulin Ratio 0.8 (0.8-1.8); Creatinine, Blood 0.32 mg/dL (0.60-1.20); Globulin, Blood 3.3 g/dL (2.2-4.0); Potassium, Blood 3.6 mmol/L (3.5-5.5); Total Protein, Blood 5.8 g/dL (6.4-8.2)
--- NOTE | 2023-01-26 18:17 | NUR ---
Am note Assumed care of patient at approx 0700, pt restless this am pulling of nc, clothing and tele. Pt alert, oriented to person, place; appears sleeping intermittenly for majority pt speaks with whispers or mouths words, at times is hard to understand. Pt resting in bed, repositioned this am, bed in low, bed alarm in place. Pt reports pain, medicated per emar. Pt breathing flail and paradoxical breathing, spo2 >90% while on 4-7L o2 via nc, pt removes frequently and desaturates to mid 80's. Tele sinus 90's, bp stable. Martinez in place, patent and draining. Barrium swallow eval completed, pt transitioned to puree, nectar thick liquid, med crushed in applesauce; feed pt dinner and appears to have tolerated it well. Placed in mitt restraints this evening after pt broke iv tubing. Low temp 96.0, attempted to place warm blankets on pt and increased room temp. Other vss. No other acute changes noted. Will continue to monitor.
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
--- NOTE | 2023-01-26 21:37 | NUR ---
PT OXYGEN SAT DECREASED TO 85% ON 6L NC. SPOKE TO RT MESHA, OXYGEN INCREASED TO 11L. OXYGEN SAT 94% AT THIS TIME.
--- NOTE | 2023-01-26 21:44 | NUR ---
PT HAS REPEATEDLY TRIED TO PULL OUT HIS TRACH THIS SHIFT DESPITE REPEATED EDUCATION ON THE NECESSITY OF THIS DEVICE TO MAINTAIN HIS LIFE. HE IS VERY DIFFICULT TO INTERACT WITH AND WILL SLAP AT YOU WHILE TRYING TO PERFORM CARE. HE DOES NOT SEEM RECEPTIVE TO EDUCATION PROVIDED OR WILLING TO BE COMPLIANT. PRN MEDICATION GIVEN WITH SOME CALMING EFFECT ON PATIENT.
--- NOTE | 2023-01-26 21:50 | NUR ---
PT WAS UNABLE TO TOLERATE PO MEDICATIONS IN APPLESAUCE. HE STATED THAT IT WAS MAKING HIM GAG AND HE REFUSED TO TAKE ANYMORE PO AT THIS TIME.
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
--- NOTE | 2023-01-27 00:39 | NUR ---
SPOKE TO DR STARR AND UPDATED HER ON PT CONDITION AND CHANGES TO TREATMENT. NO FURTHER ORDERS GIVEN AT THIS TIME.
[2023-01-27 04:24] LABS: BASOPHILS ABSOLUTE AUTO 0.04 K/mm3 (0.00-0.23); BASOPHILS PERCENT AUTO 0 % (0-2); EOSINOPHILS ABSOLUTE AUTO 0.02 K/mm3 (0.00-0.68); EOSINOPHILS PERCENT AUTO 0 % (0-6); Hematocrit 32.7 % (37.0-53.0); Hemoglobin 10.5 g/dL (13.5-17.5); IMMATURE GRAN ABSOLUTE AUTO 0.21 K/mm3 (0.00-0.10); IMMATURE GRAN PERCENT AUTO 2 % (0-1); LYMPHOCYTES ABSOLUTE AUTO 1.49 K/mm3 (0.84-5.20); LYMPHOCYTES PERCENT AUTO 12 % (21-46); MONOCYTES ABSOLUTE AUTO 0.86 K/mm3 (0.16-1.47); MONOCYTES PERCENT AUTO 7 % (4-13); Mean Corpuscular HGB 34.5 pg (26.0-34.0); Mean Corpuscular HGB Conc 32.1 g/dL (31.5-36.5); Mean Corpuscular Volume 108 fL (80-100); Mean Platelet Volume 10.8 fL (9.1-12.4); NEUTROPHILS ABSOLUTE AUTO 10.27 K/mm3 (1.96-9.15); NEUTROPHILS PERCENT AUTO 80 % (41-73); Platelet Count 246 K/mm3 (150-400); RDW Coefficient Variation 17.1 % (11.7-14.2); RDW Standard Deviation 66.5 fL (35.1-46.3); Red Blood Cell Count 3.04 M/mm3 (4.30-5.90); White Blood Cell Count 12.89 K/mm3 (4.00-11.30)
[2023-01-27 04:39] LABS: Anion Gap 3 mmol/L (6-16); Blood Urea Nitrogen 18 mg/dL (8-24); Bun/Creatinine Ratio 44.6 (12.0-20.0); CO2, Blood 42 mmol/L (21-32); Calcium, Blood 9.2 mg/dL (8.5-10.1); Chloride, Blood 94 mmol/L (98-108); Glomerular Filtration Rate 124 (60-); Glucose, Blood 156 mg/dL (70-99); Magnesium, Blood 1.9 mg/dL (1.6-2.4); Phosphorus, Blood 2.7 mg/dL (2.5-4.9); Potassium, Blood 4.1 mmol/L (3.5-5.5); Sodium, Blood 139 mmol/L (136-145); Triglycerides 225 mg/dL (30-160)
--- NOTE | 2023-01-27 06:12 | NUR ---
PT HAS BECOME INCREASINGLY AGITATED AND HYPOXIC DESPITE INCREASING AIRVO SETTINGS. RT MESHA CEBALLOS WAS CALLED TO BEDSIDE. AIRVO SETTINGS ARE NOW 60L AND 91% TO MAINTAIN OXYGEN SAT >90% PT IS RESTRAINED PER MD ORDER BUT CONTINUES TO TRY AND PULL OXYGEN OUT. RT ATTEMPTED TO DEEP SUCTION HIM BUT HIS NOSE BEGAN TO BLEED. DR STARR WAS CALLED AND NOTIFIED OF PTS CONTINUING DECOMPENSATION AND DECLINING RESP STATUS AND THAT PT KEEPS REPEATING HE CAN'T BREATHE. I ASKED HER TO COME AND LOOK AT THE PATIENT BECAUSE HE WAS IN RESP DISTRESS. SHE WANTED TO PUT THE PT ON BIPAP AT WHICH TIME I GAVE MESHA CEBALLOS THE PHONE TO EXPLAIN WHY BIPAP WAS CONTRAINDICATED IN THIS PT. I THEN SPOKE BACK TO DR STARR WHO DISCUSSED PT CODE STATUS AND ASKED IF I HAD SPOKEN TO THE FAMILY WHICH I HAD NOT. PT IS A FULL CODE AT THIS TIME. I OFFERED TO CALL FAMILY TO DISCUSS CODE STATUS TO WHICH SHE STATED THAT SHE WOULD SPEAK TO THEM. SHE STATED THAT THE PT COULD HAVE ATIVAN AND I STATED THAT I DID NOT FEEL COMFORTABLE GIVING THAT MEDICATION WITH HIS DECLINING RESP STATUS AND HIGH AIRVO SETTINGS AND W/BIPAP NOT BEING A VIABLE OPTION AT THIS TIME. SHE ASKED IF THE PT WAS STILL AGITATED AND I TOLD HER THAT YES HE WAS AND THAT A NURSE WAS STAYING AT THE BEDSIDE WITH HIM. I MENTIONED TO HER THAT HER ATTENDING WAS ALSO FAMILIAR WITH THE PT TO SOME EXTENT IN CASE SHE WANTED TO CONSULT WITH HIM FOR HELP. SHE STATED THAT SHE WAS FAMILIAR WITH THE PATIENT AND HAD WORKED WITH HIM FOR THE PAST 2 WEEKS. I STATED I WAS JUST TRYING TO BE HELPFUL. SHE STATED THAT SHE WOULD DISCUSS WITH THE ONCOMING DAY TEAM AND THANKED ME FOR MY HELP. PT CONTINUES TO SAY HE CAN'T BREATH AND IS ANXIOUS, TRYING TO GET OUT OF BED AND TAKE AIRVO OUT OF HIS NOSE. CHARGE NURSE IS AWARE AND HAS BEEN AT PT BEDSIDE TO ASSIST. WILL CONTINUE TO MONITOR PT AND NOTIFY MD APPROPRIATE.
--- NOTE | 2023-01-27 08:58 | NUR ---
Spoke with Dr Dowd and glue jointer feeder Bala. Pt's O2 requirments have increased and is confused. Potential anoxic injury from CPR. Pt resting in bed and on AIRVO. Pt is confused and appears dyspneic as evidenced by work of breathing. Spouse Shira at bedside. Engaged in therapeutic conversation regarding advanced care planning and code stauts wishes. Educated on life sustaining treatments including risk factors and implications of CPR/Intubation. Offered therapeutic listening and validated concerns. Shira reports thinking that Pt would not want CPR again but would like to speak with Pt's brothers before chaning him to DNR. Gentle discussion regarding the potential need to re evaluate goals of care pending Pt's clinical coarse during hospital stay. Continued supportive visit. Spoke with Primary RN and relayed plan for spouse to speak with Pt's brother. Spouse is leaning towards code status change. Palliative Care will F/U for therapeutic visits.
--- NOTE | 2023-01-27 11:28 | NUR ---
Case Conference Note Met with family in ICU waiting room. Engaged in therpaeutic conversation regarding advanced care planning and code status. Offered therapeutic listening and answered questions. Family reports Pt would not want CPR/Intubation. Dr Patricio arrives and we all met in PC office. Dr Patricio reviews plan of care and discusses prognosis. Dr Patricio answers questions and discusses recommendations including considering comfort care and hospice. Family expresses appreciation and reports needing time to consider options. Family does agree with DNR status. Placed DNR order in [facility] per V/O from Dr Patricio. Spoke with Primary RN Margarita and discussed case. Palliative Care will remain available
--- NOTE | 2023-01-27 17:40 | NUR ---
SHIFT SUMMARY; ASSUMED CARE AT 0700. AIRVO AT START OF SHIFT 90% 60L. OBSERVABLE FLAIL CHEST WITH RR IN MID 30'S. ALERT AND ATTEMPTS TO ANSWER QUESTIONS WITH SLOW MUMBLED SPEECH. CHANGED TO HIGH FLOW CANNULA BY RT 12L. SATS MAINTAINING 91-99%. MOVES FREQUENTLY IN BED. REPOSITIONED MULTIPLE TIMES, PULLING UP IN BED, PLACING LEGS BACK IN BED AFTER PT PUTTING THEM OVER SIDE RAILS. FOAM HEEL PROTECTORS PLACED BILATERALLY ON HEELS. MEPILEX TO ELBOWS, BRUISING AND SMALL ABRASIANS SCATTERED T/O. L/S DIM AND COARSE. TPN INFUSING PER EMAR, CHANGED AT 1500. DENIES PAIN MULTIPLE TIMES DURING SHIFT. NATHAN REMOVED AND URINATING IN URNIAL WITH ASSISTANCE. 4 SIDE RAILS UP, BILATERAL WRIST RESTRAINTS FOR PULLING AT LINES, RESTRAINT BREAKS GIVEN DURING SHIFT WITH SUPERVISION. WILL CONTINUE TO MONITOR AND TREAT UNTIL CHANGE OF SHIFT.
--- NOTE | 2023-01-28 03:43 | NUR ---
FALL ONIEL Plascencia RN COMPLETED INTENTIONAL HOURLY ROUNDING AT 0000. ASSISTANT AUTO CENTER MANAGER SEATED OUTSIDE OF ROOM BUT PULLED AWAY. 0016 RN TO ROOM. PT ON FLOOR ON KNEES. STATING "I DON'T KNOW". PT HAD SLIPPED THROUGH GUARDRAILS. UNKNOWN INTENTION. THIS REHABILITATION CLERK TO ROOM TO ASSIST. STAFF SENT TO FIND LIFT SHEET AND LIFT. 0020 LIFT AND SHEET TO ROOM. PT ROLLED ONTO IT. PT BACK INTO BED AT 0025. 0026 VS COMPLETD. HYPERTENSIVE BUT OTHERWISE STABLE. KNEE ABRASION NOTED AND PICTURE TAKEN. HEAD WITHOUT BLEMISH/PAIN TO PALPATION. NO NEURO CHANGES NOTED TO ASSESMENT. PT ANXIOUS, PULLING AT TELEMETRY AND REACHING OUT FOR STAFF/EQUIPMENT. DR STARR CALLED, UPDATED. ATIVAN ADMINISTERED PER MD ORDER. PT SPOUSE CALLED AND UPDATED.
[2023-01-28 04:48] LABS: BASOPHILS ABSOLUTE AUTO 0.04 K/mm3 (0.00-0.23); BASOPHILS PERCENT AUTO 0 % (0-2); EOSINOPHILS ABSOLUTE AUTO 0.02 K/mm3 (0.00-0.68); EOSINOPHILS PERCENT AUTO 0 % (0-6); Hemoglobin 10.5 g/dL (13.5-17.5); IMMATURE GRAN ABSOLUTE AUTO 0.27 K/mm3 (0.00-0.10); IMMATURE GRAN PERCENT AUTO 2 % (0-1); LYMPHOCYTES ABSOLUTE AUTO 1.81 K/mm3 (0.84-5.20); LYMPHOCYTES PERCENT AUTO 11 % (21-46); MONOCYTES ABSOLUTE AUTO 1.28 K/mm3 (0.16-1.47); MONOCYTES PERCENT AUTO 8 % (4-13); Mean Corpuscular HGB 34.1 pg (26.0-34.0); Mean Corpuscular HGB Conc 31.8 g/dL (31.5-36.5); Mean Corpuscular Volume 107 fL (80-100); Mean Platelet Volume 10.9 fL (9.1-12.4); NEUTROPHILS ABSOLUTE AUTO 12.92 K/mm3 (1.96-9.15); NEUTROPHILS PERCENT AUTO 79 % (41-73); NRBC ABSOLUTE 0.02 K/mm3 (0.00-0.02); NRBC Auto 0.1 /100 WBC (0.0-0.2); Platelet Count 237 K/mm3 (150-400); RDW Coefficient Variation 17.3 % (11.7-14.2); RDW Standard Deviation 66.3 fL (35.1-46.3); Red Blood Cell Count 3.08 M/mm3 (4.30-5.90); White Blood Cell Count 16.34 K/mm3 (4.00-11.30)
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
--- NOTE | 2023-01-28 13:14 | NUR ---
Pt resting in bed upon arrival. Pt appears moderately anxious or painful as evidenced by constant squirming in bed. Spouse Shira at bedside consoling Pt. Offered supportive visit. Listened as Shira expresses concerns that the Ativan may be causeing Pt to become more anxious. Continued supportive visit. Primary RN and full stack web developer not available at time of visit. Relayed spouse's concerns regarding Ativan to Clinical Coordinator Teodora who will pass concerns to Primary RN. Pt may benefit from alternate anti anxiety medication if appropriate. Palliative Care will remain available.
--- NOTE | 2023-01-28 14:09 | NUR ---
Spoke with Dr Patricio and relayed spouse's concern regarding Ativan. Placed order for Benadryl 25mg IV daily as needed for anxiety and D/C Ativan IV per V/O from Dr Patricio.
[2023-01-28 17:10] LABS: Calcium, Blood 9.2 mg/dL (8.5-10.1); Creatinine, Blood 0.43 mg/dL (0.60-1.20); Phosphorus, Blood 3.4 mg/dL (2.5-4.9); Potassium, Blood 4.7 mmol/L (3.5-5.5)
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
[2023-01-29 04:04] LABS: BASOPHILS ABSOLUTE AUTO 0.06 K/mm3 (0.00-0.23); BASOPHILS PERCENT AUTO 1 % (0-2); EOSINOPHILS ABSOLUTE AUTO 0.04 K/mm3 (0.00-0.68); EOSINOPHILS PERCENT AUTO 0 % (0-6); Hematocrit 31.6 % (37.0-53.0); Hemoglobin 10.2 g/dL (13.5-17.5); IMMATURE GRAN ABSOLUTE AUTO 0.25 K/mm3 (0.00-0.10); IMMATURE GRAN PERCENT AUTO 2 % (0-1); LYMPHOCYTES ABSOLUTE AUTO 1.64 K/mm3 (0.84-5.20); LYMPHOCYTES PERCENT AUTO 12 % (21-46); MONOCYTES ABSOLUTE AUTO 1.12 K/mm3 (0.16-1.47); MONOCYTES PERCENT AUTO 8 % (4-13); Mean Corpuscular HGB 34.8 pg (26.0-34.0); Mean Corpuscular HGB Conc 32.3 g/dL (31.5-36.5); Mean Corpuscular Volume 108 fL (80-100); Mean Platelet Volume 10.8 fL (9.1-12.4); NEUTROPHILS ABSOLUTE AUTO 10.21 K/mm3 (1.96-9.15); NEUTROPHILS PERCENT AUTO 77 % (41-73); NRBC ABSOLUTE 0.02 K/mm3 (0.00-0.02); NRBC Auto 0.2 /100 WBC (0.0-0.2); Platelet Count 224 K/mm3 (150-400); RDW Coefficient Variation 17.4 % (11.7-14.2); RDW Standard Deviation 68.9 fL (35.1-46.3); Red Blood Cell Count 2.93 M/mm3 (4.30-5.90); White Blood Cell Count 13.32 K/mm3 (4.00-11.30)
[2023-01-29 04:35] LABS: Bun/Creatinine Ratio 36.6 (12.0-20.0); Calcium, Blood 9.5 mg/dL (8.5-10.1); Creatinine, Blood 0.44 mg/dL (0.60-1.20); Phosphorus, Blood 3.5 mg/dL (2.5-4.9); Potassium, Blood 4.9 mmol/L (3.5-5.5)
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
--- NOTE | 2023-01-29 15:28 | NUR ---
Spoke with Pt Primary RN Claudia and discussed case. Pt remains consistantly anxious throughout the day. Fentanyl being offerd every 3 hours for pain but Pt remains significantly anxious and in restraints. Pt resting in bed and appears anxious. Voice very soft and difficult to understand. Pt's spouse Shira at bedside. Offered therapeutic listening as spouse reports Benadryl was beneficial last night but did not benefit for long. Discussed potential medications for anxiety and agitation. Spouse agreeable to try new medication if appropriate. Spoke with Dr Patricio and discussed case. Placed order for Seroguel 25mg PO BID, first dose to start now, D/C Benadryl per V/O from Dr Patricio. Palliative Care will remain available
--- NOTE | 2023-01-29 17:37 | NUR ---
SHIFT SUMMARY Patient neuro remains unchanged. Patient has been anxious/agitated/calm/ withdrawn throughout the shift. Patient becomes more calm when is at bedside and becomes more anxious when leaves. This RN used therapuetic commincation when interacting with the patient and patient as needed for support. Patient fell asleep and will save dinner tray for when patient wakes. Call light within reach and bed in lowest position with alarm on. Restraints remain in place, see order and restraint documentation. Will give report to oncoming shift.
[2023-01-30 04:52] LABS: BASOPHILS ABSOLUTE AUTO 0.04 K/mm3 (0.00-0.23); BASOPHILS PERCENT AUTO 0 % (0-2); EOSINOPHILS ABSOLUTE AUTO 0.04 K/mm3 (0.00-0.68); EOSINOPHILS PERCENT AUTO 0 % (0-6); Hematocrit 29.3 % (37.0-53.0); Hemoglobin 9.2 g/dL (13.5-17.5); IMMATURE GRAN ABSOLUTE AUTO 0.36 K/mm3 (0.00-0.10); IMMATURE GRAN PERCENT AUTO 3 % (0-1); LYMPHOCYTES ABSOLUTE AUTO 2.07 K/mm3 (0.84-5.20); LYMPHOCYTES PERCENT AUTO 15 % (21-46); MONOCYTES ABSOLUTE AUTO 1.34 K/mm3 (0.16-1.47); MONOCYTES PERCENT AUTO 10 % (4-13); Mean Corpuscular HGB 33.8 pg (26.0-34.0); Mean Corpuscular HGB Conc 31.4 g/dL (31.5-36.5); Mean Corpuscular Volume 108 fL (80-100); Mean Platelet Volume 11.1 fL (9.1-12.4); NEUTROPHILS ABSOLUTE AUTO 9.86 K/mm3 (1.96-9.15); NEUTROPHILS PERCENT AUTO 72 % (41-73); Platelet Count 220 K/mm3 (150-400); RDW Coefficient Variation 17.5 % (11.7-14.2); RDW Standard Deviation 69.2 fL (35.1-46.3); Red Blood Cell Count 2.72 M/mm3 (4.30-5.90); White Blood Cell Count 13.71 K/mm3 (4.00-11.30)
[2023-01-30 05:14] LABS: Albumin, Blood 2.6 g/dL (3.4-5.0); Albumin/Globulin Ratio 0.7 (0.8-1.8); Bun/Creatinine Ratio 54.2 (12.0-20.0); Calcium, Blood 9.2 mg/dL (8.5-10.1); Creatinine, Blood 0.42 mg/dL (0.60-1.20); Globulin, Blood 3.7 g/dL (2.2-4.0); Potassium, Blood 4.9 mmol/L (3.5-5.5); Total Protein, Blood 6.3 g/dL (6.4-8.2)
--- NOTE | 2023-01-30 05:40 | NUR ---
SHIFT SUMMARY PATIENT ALERT AND ORIENTED X2-3. REMAINS ON BEDREST IN RESTRAINTS PATIENT IS STILL VERY WEAK, PULLING AT LINES, AND ATTEMPTING TO GET OUT OF BED. PATIENT EDUCATED REGARDING WHY HE IS STILL IN RESTRAINTS. PATIENT REMAINS ANXIOUS, SUSPICIOUS OF OTHERS, AND DISTRUSTING OF STAFF. VITAL SIGNS STABLE. PATIENT MEDICATED PER EMAR FOR PAIN. LUNG SOUNDS COARSE T/O AND VISIBLE FLAIL CHEST STILL PRESENT. PATIENT CONTINUES ON 2 LITERS O2 VIA NASAL CANULA. PATIENT SINUS RHYTHM ON TELEMETRY. WILL CONTINUE TO MONITOR. CALL LIGHT WITHIN REACH.
--- NOTE | 2023-01-30 07:12 | NUR ---
ASSUMED CARE: PT RESTING IN BED ON 2L NC. NSR IN 90S ON TELE. VERY SOFT SPOKEN, ASKING STAFF TO TAKE DAX VEST OFF. ALSO IN WRIST RESTRAINTS. NO ACUTE NEEDS AT THIS TIME.
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
--- NOTE | 2023-01-30 14:23 | NUR ---
CALL TO DR GRANADO REGARDING PT'S POTASSIUM AND MED ORDERS. PT HAD SCHEDULED KCL AND PPN WITH KPHOS IN IT. ORDERED KCL DISCONTINUED. PT RESTING QUIETLY, NO FURTHER NEEDS AT THIS TIME.
--- NOTE | 2023-01-30 16:27 | NUR ---
CALL TO DR GRANADO DUE TO PT HAVING NEW CONGESTED COUGH. LUNG SOUNDS COURSE T/O. NO CHANGES IN O2 NEEDS, 1L SATTING MID 90S. NO CHANGES IN VITALS FROM EARLIER ASSESSMENT. DR GRANADO STATED HE WOULD COME ASSESS PT. NO NEW ORDERS AT THIS TIME.
--- NOTE | 2023-01-30 17:59 | NUR ---
SHIFT SUMMARY: PT HAS BEEN RESTING IN BED IN BILATERAL WRIST RESTRAINTS, DAX VEST AND 4 SIDE RAILS DUE TO FREQUENT ATTEMPTS TO CLIMB OUT OF BED. ON 1L O2 VIA NC AND NSR ON TELE T/O DAY. CONGESTED COUGH NOTED BUT DR GRANADO CAME TO SEE PT AND STATED TO LET HOSPITALIST KNOW IF BEGINS TO DECOMPENSATE BUT FOR NOW NO NEW ORDERS. WAS AT BEDSIDE PART OF THE SHIFT AND WAS ABLE TO GET PT TO TAKE MEDS CRUSHED IN A.S. NO FURTHER NEEDS OR CONCERNS AT THIS TIME.
--- NOTE | 2023-01-31 02:53 | NUR ---
PHYSICIAN COMMUNICATION CONTACTED THE RESIDENT PATIENT SUPPORT SPECIALIST, DR. Day, AND NOTIFIED HER THAT THE PATIENT IS AGITATED AND CONSTANTLY TRYING TO GET OUT OF BED DESPITE BEING IN A DAX VEST AND SOFT WRIST RESTRAINTS WITH FOUR SIDE RAILS UP ON THE BED. LET HER KNOW THAT THE PATIENT HAS BEEN MEDICATED PER EMAR WITH FENTANYL FOR PAIN/SEDATION AND ASKED FOR SOMETHING ELSE SO THAT WE DON'T HAVE TO INCREASE THE AMOUNT OF RESTRAINTS. DR. Day ORDERED A ONE TIME DOSE OF 5 MG IM ZYPREXA.
[2023-01-31 04:52] LABS: Hematocrit 25.4 % (37.0-53.0); Hemoglobin 8.5 g/dL (13.5-17.5); Mean Corpuscular HGB 35.3 pg (26.0-34.0); Mean Corpuscular HGB Conc 33.5 g/dL (31.5-36.5); Mean Corpuscular Volume 105 fL (80-100); Mean Platelet Volume 11.7 fL (9.1-12.4); Platelet Count 209 K/mm3 (150-400); RDW Standard Deviation 64.8 fL (35.1-46.3); Red Blood Cell Count 2.41 M/mm3 (4.30-5.90); White Blood Cell Count 11.93 K/mm3 (4.00-11.30)
[2023-01-31 05:11] LABS: Albumin, Blood 2.6 g/dL (3.4-5.0); Albumin/Globulin Ratio 0.7 (0.8-1.8); Bilirubin, Total 0.9 mg/dL (0.1-1.0); Bun/Creatinine Ratio 70.5 (12.0-20.0); Creatinine, Blood 0.38 mg/dL (0.60-1.20); Globulin, Blood 3.5 g/dL (2.2-4.0); Magnesium, Blood 1.9 mg/dL (1.6-2.4); Phosphorus, Blood 3.9 mg/dL (2.5-4.9); Potassium, Blood 4.5 mmol/L (3.5-5.5); Total Protein, Blood 6.1 g/dL (6.4-8.2)
--- NOTE | 2023-01-31 07:21 | NUR ---
SHIFT SUMMARY PATIENT ALERT AND ORIENTED X 2-3. PATIENT VERY AGITATED OVERNIGHT, CONTINUALLY TRYING TO USE HIS LEGS TO CRAWL OUT OF HIS BED, TURNING SIDEWAYS IN THE BED, ATTEMPTING TO GRAB LINES WITH HIS HANDS. PATIENT CONTINUES IN RESTRAINTS A RESULT. IM ZYPREXA GIVEN AND PATIENT WAS ABLE TO REST COMFORTABLY FOR A FEW HOURS BEFORE BECOMING AGITATED AGAIN. PATIENT ON 1-2 LITERS O2 VIA NASAL CANULA MOST OF THE NIGHT. RIGHT AT SHIFT CHANGE PATIENT DESATED TO THE 70'S, REPOSITIONED PATIENT AND SAT HIM UPRIGHT, REQUIRED TO BE TURNED UP TO 15 LITERS. REPORT GIVEN TO ONCOMING RN WHO WILL CONTINUE TO MONITOR THE PATIENT, CURRENTLY WORKING ON TITRATING O2 BACK DOWN.
--- NOTE | 2023-01-31 09:00 | NUR ---
CARE ASSUMPTION THIS RN ASSUMED CARE AT 0700. VSS. TELE SR. PATIENT IS ALERT AND ORIENTED X2-3. PATIENT KNOWS HE HAS AT THE HOSPITAL AND IS AWARE OF SITUATION INTERMITTENTLY. PATIENT WHISPING HE WANTS TO GO HOME. PATIENT REPORTS PAIN IN RIBS/CHEST AND RECEIVED PAIN MEDS PER EMAR. SEE EMAR. PATIENT REPORTS NO CHEST PAIN/PRESSURE. NO SHORTNESS OF BREATH. FLAIL CHEST IS EVIDENT. SEE SHIFT ASSESSMENT FOR FURTHER DETIALS. PLAN OF CARE UP TO DATE. CALL LIGHT WITHIN REACH
--- NOTE | 2023-01-31 13:05 | NUR ---
UPDATE PATIENT CORE TEMPERATURE 94.5. THIS RN CALLED MD GRANADO AND INFORMED HIM. BEAR HUGGER IN PLACE, KPAD IN PLACE, AND WARM BLANKET IN PLACE. WILL CONTINUE TO MONITOR TEMAPTURE STATUS.
--- NOTE | 2023-01-31 17:43 | NUR ---
SHIFT SUMMARY Patient has been sleeping most of this RNS shift. Patient has been at bedside majority of the day. Patient had linen change and bed bath. Patient blood pressure became hypotensive, see vital signs section. This RN called MD Bull. MD Bull placed new orders. See orders. Patient blood pressure has improved. Patient has been repositioned throughout the shift. Patient had a bear hugger in place due to low temperature. Temperature is now within normal limits, and bear hugger is on stand by in the room. See vital sign section. Md Patricio updated patients on plan of care. No acute changes since pervious note. Call light within reach and bed is in lowest position with alarm on.
--- NOTE | 2023-01-31 18:50 | NUR ---
UPDATE PATIENT SPO2 ALARM, ALRMED AT 87, AND THIS RN WENT IN. THIS RN TURNED PATIENTS SPO2 VIA NC FROM 2L, UP TO 15L NC. PATIENT SPO2 INCREASED TO 90 AND RESPIRATORY CARE WAS CALLED. RESPIRATORY CARE IN ROOM AND SPO2 WAS AT 93% ON 15L NC. THIS RN CALLED MD GRANADO AND ORDERS WERE PLACED. FLUIDS STOPPED. SPO2 ALARM ALARMED AT 87 AND THIS RN WHEN ENTERING ROOM SPO2 WAS AT 82%. THIS RN CALLED RESPIRATORY CARE AND TAKE OFF WORKER. TAKE OFF WORKER IN ROOM AND RESPIRATORY CARE IN ROOM. PATIENT PLACED ON AIRVO AT 50L 86% AND NONREBREATHER AT 25L ON TOP. SPO2 AT 94%. RESPIRATORY CARE SUCTIONED VIA THE MOUTH AND BLOODY SECRETIONS AND A BLOOD CLOT THE SIZE OF A QUATER CAME UP. NONREBREATHER PUT BACK ON TOP OF AIRVO DUE TO PATIENT DESATTING WHILE SUCTIONING. PATIENT SPO2 AT 96% AND NONREBREATHER TAKENED OFF. AIRVO AT 50L 86%. MD GRANADO CALLED TO UPDATE. THIS RN CALLED THE TO UPDATE HER ON PATIENT CONDITION AND INCREASED OYXGEN DEMANDS. PATIENT RESPIRATIONS ARE 30. SEE VITAL SIGNS SECTION. WILL GIVE REPORT TO ONCOMING SHIFT.
--- NOTE | 2023-01-31 22:24 | NUR ---
PATIENT'S BLOOD PRESSURE NOTED TO BE HYPOTENSIVE 83 SYSTOLIC, MAP OF 70. RE-STARTED ON CONTINUOUS NORMAL SALINE AT 125 PER EMAR.
[2023-02-01 03:51] LABS: BASOPHILS ABSOLUTE AUTO 0.05 K/mm3 (0.00-0.23); BASOPHILS PERCENT AUTO 0 % (0-2); EOSINOPHILS ABSOLUTE AUTO 0.03 K/mm3 (0.00-0.68); EOSINOPHILS PERCENT AUTO 0 % (0-6); Hematocrit 25.4 % (37.0-53.0); Hemoglobin 8.2 g/dL (13.5-17.5); IMMATURE GRAN ABSOLUTE AUTO 0.43 K/mm3 (0.00-0.10); IMMATURE GRAN PERCENT AUTO 3 % (0-1); LYMPHOCYTES ABSOLUTE AUTO 2.04 K/mm3 (0.84-5.20); LYMPHOCYTES PERCENT AUTO 15 % (21-46); MONOCYTES ABSOLUTE AUTO 2.12 K/mm3 (0.16-1.47); MONOCYTES PERCENT AUTO 16 % (4-13); Mean Corpuscular HGB 34.3 pg (26.0-34.0); Mean Corpuscular HGB Conc 32.3 g/dL (31.5-36.5); Mean Corpuscular Volume 106 fL (80-100); NEUTROPHILS ABSOLUTE AUTO 8.81 K/mm3 (1.96-9.15); NEUTROPHILS PERCENT AUTO 65 % (41-73); NRBC ABSOLUTE 0.04 K/mm3 (0.00-0.02); NRBC Auto 0.3 /100 WBC (0.0-0.2); Platelet Count 235 K/mm3 (150-400); RDW Coefficient Variation 17.5 % (11.7-14.2); RDW Standard Deviation 66.8 fL (35.1-46.3); Red Blood Cell Count 2.39 M/mm3 (4.30-5.90); White Blood Cell Count 13.48 K/mm3 (4.00-11.30)
[2023-02-01 04:08] LABS: Albumin, Blood 2.6 g/dL (3.4-5.0); Albumin/Globulin Ratio 0.7 (0.8-1.8); Bilirubin, Total 0.8 mg/dL (0.1-1.0); Bun/Creatinine Ratio 55.3 (12.0-20.0); Calcium, Blood 8.8 mg/dL (8.5-10.1); Creatinine, Blood 0.47 mg/dL (0.60-1.20); Globulin, Blood 3.7 g/dL (2.2-4.0); Potassium, Blood 5.1 mmol/L (3.5-5.5); Total Protein, Blood 6.3 g/dL (6.4-8.2)
--- NOTE | 2023-02-01 06:30 | NUR ---
SHIFT SUMMARY PATIENT ALERT AND ORIENTED X 2-3. HAS REMAINED CALM OVERNIGHT AND WAS REMOVED FROM RESTRAINTS. BLOOD PRESSURE HAS CONTINUED IN THE 90'S SYSTOLIC. HIS OXYGEN NEEDS HAVE WAXED AND WAYNED OVERNIGHT, STILL REQUIRING AIRVO AND AT TIMES REQUIRING NONREBREATHER OVER FOR RECOVERY. CURRENTLY HE IS MAXED OUT ON AIRVO AND NONREBREATHER, RT TO BEDSIDE AND DEEP SUCTIONED PATIENT, PRODUCING SOME BLOOD IN SUCTION TUBING. HOWEVER IT WAS NOT EFFECTIVE IN IMPROVING THE PATIENTS SPO2. HE IS TACHYPNIC AND HAVING LABORED BREATHING, SATING 85%. CALLED THE PATIENT'S AND NOTIFIED HER OF THE PATIENT'S CONDITION, SHE IS ON HER WAY IN TO THE HOSPITAL NOW.
--- NOTE | 2023-02-01 06:53 | NUR ---
PATIENT'S IS NOW AT BEDSIDE. NOTIFIED DR MARTINEZ OF THE PATIENT'S CURRENT CONDITION AND THE NEED TO DISCUSS COMFORT MEASURES WITH THE PATIENT AND HIS .
--- NOTE | 2023-02-01 08:00 | NUR ---
Received report from Noc RN. Patient is calm in bedwith at bedside. He is on AirVO at 63L 94% and NRM at flush 25L O2 and sats > 90%. He is irritated with NRM and keeps reaching up to it. Re dressed skin tear on right lower forearm and he has dressing to left lower forearm as well. He has 20 ga PG to VIANEY infusing IV nutrition at 106 ml/hr and NS TKO on hold. patient is alert enough to communicate needs and states name and place as well as wifes name. Dr's are coming to speak with to set plan of care.
--- NOTE | 2023-02-01 10:04 | NUR ---
Patient continues to rest without any changes to O2 consumption and sats >90%. Family has stepped away for a little bit and will be meeting with palliative care. No changes to IV gtt's and or patients status. He denies any need for pain or anxiety meds.
--- NOTE | 2023-02-01 11:31 | NUR ---
family meeting to review his prognosis. Family has been discussing plan of care and have decided to move to comfort care. will monitor labored respirations and titrate oxygen carefully.
--- NOTE | 2023-02-01 14:00 | NUR ---
Patient continues on AirVo 64L 94% and 25L O2 via NRM and sats 90%. family gathering at bedside. Patient wakening for very brief moments. He has clear oral secretions, copius amounts and have wash cloth in place. VS stable with current treatment, he has been ordered comfort care. Have stopped TPN. Oral and nasal care, with suctioning mouth.
--- NOTE | 2023-02-01 16:00 | NUR ---
Other family memebers arrived and had questions for Dr Patricio and felt we rushed to comfort care and did not explain to the where she could understand and she was confused about PEG tube. Dr Patricio and i explained thoughouly and felt they were disappointed we did not try other avenues of BIPAP several days ago, better nutrition eventhough we explained that he is on nutrition. Another medical trained family memeber wanted to talk and have me explain why the deteriation over the last few days and felt we could of tried other resp. interventions such as BIPAP. Family stated that they wanted to hold on comfort care until they talked again and reveiwed everything that we talked with them about. They expressed that they though we could of done more rather than rushing the unexperienced medical into a comfort care decision. I spoke with Ana María PRO from Palliative care and Dr patricio after talk was over.
--- NOTE | 2023-02-01 18:00 | NUR ---
went in room to do more oral and nasal care and told me we are going to continue with original decision for comfort care. He remains on same O2 settings and sats are now down into the 80's and he only responds to family when you do care and position him and falls right back to sleep. he continues with copius amounts of clear thin oral secretions and wash cloth in place. Medicated with atropine drops for secretions.
--- NOTE | 2023-02-01 19:00 | NUR ---
family having deep discussion about care. Will remain available is they continue to struggle at this time we are continuing comfort care pt kps score is 20%. Will continue to reenforce need for end of life care to prevent extrodinary suffering.
--- NOTE | 2023-02-01 20:52 | NUR ---
WENT INTO PT ROOM AND WAS GOING TO REPOSTION AND FAMILY SAID NOT AT THIS TIME HE IS COMFORTABLE AND DOESNT NEED TO BE MOVED. RN WAS NOTIFIED
--- NOTE | 2023-02-02 05:44 | NUR ---
FINAL D/C TIME OF 05, PT'S IS AT THE BEDSIDE, CHARGE NURSE NOTIFIED TO WITNESS. WILL CLARIFY WIFES WISHES AND REPORT TO VETERINARY MANAGER.
--- NOTE | 2023-02-02 08:54 | NUR ---
Post mortem care was completed. Condom catheter and Powerglide midline catheter was removed.
== END 2023-02-02 09:19 | DRG 286 ==
LOC: ER 20:25 → ICUW 22:52 → ICUE 22:52 → PCU 22:52 → ICUE 23:17 → PCU 01-22 01:19
PROVIDERS: Family Medicine; Hospitalist; Internal Medicine; Internal Medicine Critical Care Medicine; Student in an Organized Health Care Education/Training Program; ADMIT Internal Medicine
PROC: 3E033XZ Introduction of Vasopressor into Peripheral Vein, Percutaneous Approach (ICD-10-PCS; 2023-01-13)
PROC: 5A1955Z Respiratory Ventilation, Greater than 96 Consecutive Hours (ICD-10-PCS; 2023-01-13)
PROC: 0BH17EZ Insertion of Endotracheal Airway into Trachea, Via Natural or Artificial Opening (ICD-10-PCS; 2023-01-13)
PROC: 4A133R1 Monitoring of Arterial Saturation, Peripheral, Percutaneous Approach (ICD-10-PCS; 2023-01-13)
PROC: 5A12012 Performance of Cardiac Output, Single, Manual (ICD-10-PCS; 2023-01-13)
PROC: 0DH67UZ Insertion of Feeding Device into Stomach, Via Natural or Artificial Opening (ICD-10-PCS; 2023-01-13)
PROC: 3E0G76Z Introduction of Nutritional Substance into Upper GI, Via Natural or Artificial Opening (ICD-10-PCS; 2023-01-13)
PROC: 0T9B70Z Drainage of Bladder with Drainage Device, Via Natural or Artificial Opening (ICD-10-PCS; 2023-01-13)
PROC: 4A033R1 Measurement of Arterial Saturation, Peripheral, Percutaneous Approach (ICD-10-PCS; 2023-01-13)
PROC: 02HV33Z Insertion of Infusion Device into Superior Vena Cava, Percutaneous Approach (ICD-10-PCS; 2023-01-14)
PROC: 5A09357 Assistance with Respiratory Ventilation, Less than 24 Consecutive Hours, Continuous Positive Airway Pressure (ICD-10-PCS; 2023-01-20)
PROC: 4A023N7 Measurement of Cardiac Sampling and Pressure, Left Heart, Percutaneous Approach (ICD-10-PCS; principal; 2023-01-24)
PROC: B211YZZ Fluoroscopy of Multiple Coronary Arteries using Other Contrast (ICD-10-PCS; 2023-01-24)
PROC: B215YZZ Fluoroscopy of Left Heart using Other Contrast (ICD-10-PCS; 2023-01-24)
PROC: B240ZZ3 Ultrasonography of Single Coronary Artery, Intravascular (ICD-10-PCS; 2023-01-24)
PROC: 3E0336Z Introduction of Nutritional Substance into Peripheral Vein, Percutaneous Approach (ICD-10-PCS; 2023-01-26)
DX: I46.9 Cardiac arrest, cause unspecified (principal); E43 Unspecified severe protein-calorie malnutrition; J96.00 Acute respiratory failure, unspecified whether with hypoxia or hypercapnia; M96.A4 Flail chest associated with chest compression and cardiopulmonary resuscitation; A04.72 Enterocolitis due to Clostridium difficile, not specified as recurrent; R57.9 Shock, unspecified; N39.0 Urinary tract infection, site not specified; G93.1 Anoxic brain damage, not elsewhere classified; B37.0 Candidal stomatitis; M96.A2 Fracture of one rib associated with chest compression and cardiopulmonary resuscitation; E87.3 Alkalosis; Z66 Do not resuscitate; Z51.5 Encounter for palliative care; R13.10 Dysphagia, unspecified; R29.818 Other symptoms and signs involving the nervous system; K70.30 Alcoholic cirrhosis of liver without ascites; F10.20 Alcohol dependence, uncomplicated; I10 Essential (primary) hypertension; E83.42 Hypomagnesemia; D64.9 Anemia, unspecified; I49.01 Ventricular fibrillation; I47.20 Ventricular tachycardia, unspecified; R56.9 Unspecified convulsions; D69.6 Thrombocytopenia, unspecified; E87.6 Hypokalemia; E87.5 Hyperkalemia; J43.9 Emphysema, unspecified; F17.210 Nicotine dependence, cigarettes, uncomplicated; K27.9 Peptic ulcer, site unspecified, unspecified as acute or chronic, without hemorrhage or perforation; I25.10 Atherosclerotic heart disease of native coronary artery without angina pectoris; B95.4 Other streptococcus as the cause of diseases classified elsewhere; B96.5 Pseudomonas (aeruginosa) (mallei) (pseudomallei) as the cause of diseases classified elsewhere; Z96.651 Presence of right artificial knee joint; Z88.0 Allergy status to penicillin; Z88.2 Allergy status to sulfonamides; Z79.899 Other long term (current) drug therapy; Z79.51 Long term (current) use of inhaled steroids; Z79.811 Long term (current) use of aromatase inhibitors; Z79.52 Long term (current) use of systemic steroids; Z98.890 Other specified postprocedural states; Z98.52 Vasectomy status; Z98.1 Arthrodesis status; Z87.01 Personal history of pneumonia (recurrent); Z68.27 Body mass index [BMI] 27.0-27.9, adult; Z82.49 Family history of ischemic heart disease and other diseases of the circulatory system
CPT/HCPCS: 31500; 31720; 36415; 36556; 36600; 36680; 51702; 70450; 71045; 71260; 74230; 76937; 80047; 80048; 80053; 80069; 81001; 82140; 82248; 82330; 82550; 82553; 82803; 82947; 83735; 83880; 84100; 84478; 84484; 85014; 85018; 85025; 85027; 85379; 85610; 87070; 87077; 87086; 87186; 87205; 87324; 87493; 92526; 92610; 92611; 92950; 93005; 93010; 93306; 93308; 93321; 93458; 94002; 94003; 94660; 94664; 94760; 94762; 96365-59; 96366-59; 96368; 96375-59; 96376-59; 97110; 97163; 97166; 97530; 99152; 99153; 99291-25; A9270; C1751; C1769; C1887; C1894; C9113; G0480; J0282; J0461; J0696; J1200; J1265; J1644; J1650; J1940; J1953; J1956; J2060; J2250; J2270; J2704; J3010; J3411; J3475; J3480; J7030; J7040; J7050; J7060; P9046; P9047; Q9967